=== PATIENT | male | born 1945 | race Caucasian/White ===

== ENCOUNTER 2019-12-03 17:03 | Inpatient (IN) | payer MEDICARE, MEDICAID, SELFPAY ==
[2019-12-03 17:03] VITALS: BP 119/73; PULSE 80; RESP 16; TEMP 36.6; O2SAT 95; BMI 14.9
--- NOTE | 2019-12-03 17:23 | ED_ITS ---
Documented by User: Diaz Douglas DO 12/04/19 12:43 HPI - Weakness General: Chief complaint: Weakness Stated complaint: Weakness Time Seen by Provider: 12/03/19 17:03 History of Present Illness: HPI Narrative: 73-year-old male presents emergency room with weakness for the last 2 months. He said a continuous productive cough of thick purulent sputum for the last 2 months as well he is a former have very heavy smoker he stopped smoking a month ago because he just could not finish to smoke anymore. He denies any hemoptysis he said significant weight loss as well. He states he is not able to really do anything for himself anymore he is unable to even sit at the edge of the bed without falling over. MD Complaint: generalized weakness and lack of energy Onset (ago): month(s) (2) Duration: constant Location: generalized Severity: severe Relieving factors: none Exacerbating factors: none Associated symptoms: Reports nausea; Denies chest pain, chills, dark stools, dysuria, fever(s) or vomiting Review of Systems Const: Reports: fatigue and malaise; Denies: fever, chills, body aches or change in appetite ENMT: Denies: throat pain, ear pain, nasal discharge or nasal congestion Card: Denies: chest pain, edema, shortness of breath on exertion or shortness of breath when lying down Resp: Reports: shortness of breath and productive cough; Denies: non-productive cough GI: Reports: nausea; Denies: abdominal pain, vomiting, vomiting blood, coffee grounds in vomit, diarrhea, constipation, bloating, blood in stool or black tarry stool : Denies: flank pain, painful urination, urinary frequency or urinary urgency Skin/Breast: Denies: rash or itching PFS ED PFSH: Surgical History (Updated 12/03/19 @ 20:18 by Russ Wiggins MD) History of appendectomy History of cholecystectomy Social History (Updated 12/03/19 @ 20:18 by Russ Wiggins MD) Smoking and tobacco status: former smoker Alcohol intake: never Substance/Drug Use: never Physical Exam Const: GENERAL APPEARANCE: cooperative, disheveled, lethargic, ill appearing and frail appearing ORIENTATION/CONSCIOUSNESS: Yes lethargic HENMT: COMMON NORMALS: normocephalic, head/scalp atraumatic, external ears normal, EAC's normal, TM's normal bilaterally, nasal mucous membranes and turbinates normal, moist oral mucous membranes and oropharynx normal HEAD & SCALP: normocephalic and atraumatic NOSE: nasal mucous membranes and turbinates normal EXTERNAL EAR: Yes external ears normal EXTERNAL AUDITORY CANAL: EAC's normal TYMPANIC MEMBRANE: TM's normal bilaterally Eye: COMMON NORMALS: PERRL, EOMs intact bilaterally, conjunctivae normal and no scleral icterus CONJUNCTIVA: Yes conjunctivae normal PUPIL: Yes PERRL Neck/C-Spine: COMMON NORMALS: full ROM, no lymphadenopathy, supple and no JVD Lymph: LYMPHATIC: no lymphadenopathy noted and no lymphedema noted Resp: COMMON NORMALS: normal respiratory effort, no retractions and no use of accessory muscles AUSCULTATION: wheezes throughout and diminished lung sounds diffuse Cardio: COMMON NORMALS: no JVD, regular rate, regular rhythm and no murmurs RATE: regular rate RHYTHM: regular rhythm GI: COMMON NORMALS: soft to palpation and no hepatosplenomegaly AUSCULTATION: Yes normoactive bowel sounds PALPATION: Yes soft, No tender, No guarding and Yes no hepatosplenomegaly Extremity: COMMON NORMALS: normal to inspection, normal capillary refill, no clubbing, cyanosis or edema, no calf tenderness and no pedal edema Neuro: SENSORIUM/ORIENTATION: Yes lethargic Skin: COMMON NORMALS: no rashes or lesions noted GENERAL SKIN EXAM: no rashes or lesions noted Course Vital Signs: Vital signs: Vital Signs Temperature 98.2 F 12/04/19 11:12 Pulse Rate 66 12/04/19 11:12 Respiratory Rate 20 H 12/04/19 11:12 Blood Pressure 99/59 12/04/19 11:12 Pulse Oximetry 93 12/04/19 11:12 MDM - Weakness MDM Narrative: Medical decision making narrative: Initially seen by myself. Initial labs ordered patient is cachectic in appearance very weak and unable to maintain his ADLs suspect he may need long-term care he also probably needs work-up for occult tumor he is a longtime smoker recently quit simply because he is unable to manage to smoke he become weak. Care turned over to Dr. Schaefer at change of shift. Lab Data: Labs: Lab Results 12/03/19 12/03/19 12/03/19 Range/Units 05:38 17:44 17:47 WBC 10.5 H (4.0-10.0) 10^3/ uL RBC 3.88 L (4.1-5.3) 10^6/u L Hgb 14.1 (11.7-16.6) g/dL Hct 41.8 L (42.0-52.0) % MCV 107.7 H (80-94) fL MCH 36.3 H (28.0-34.0) pg MCHC 33.7 (30.0-36.0) g/dL RDW 15.2 H (12.1-15.1) % Plt Count 281 (130-400) 10^3/c mm MPV 9.8 (7.4-10.4) fL Neut % (Auto) 52.4 % Lymph % (Auto) 34.1 % [place] % (Auto) 10.6 % Eos % (Auto) 2.1 % Baso % (Auto) 0.4 % Neut # (Auto) 5.5 (1.8-7.7) 10^3/u L Lymph # (Auto) 3.6 (0.8-4.8) 10^3/u L [place] # (Auto) 1.1 H (0.2-0.9) 10^3/u L Eos # (Auto) 0.2 (0.0-0.8) 10^3/u L Baso # (Auto) 0.0 (0.0-0.1) 10^3/u L Nucleated RBC % (a uto) 0 % Nucleated RBCs # 0.0 /100WBC ESR 71 H (0-10) mm/hr Specimen Type Arterial Sample Site Radial, left ABG pH 7.45 (7.35-7.45) ABG pCO2 41.2 (35-45) mmHg ABG pO2 55.5 L (80.0-100.0) mmH g ABG HCO3 28.6 H (22-26) mmol/L ABG O2 Saturation 91.9 ABG Base Excess 4.2 H (-2.0-2.0) mmol/ L Jarvis Test Pos A-a O2 Gradient 43.3 H (5-10) mmHg Hematocrit 39.9 L (42-52) % Hgb O2 Saturation 82.4 L (95-100) % Carboxyhemoglobin 9.5 (0.4-20.1) %THgb Methemoglobin 0.9 (0.4-1.5) % Total Hemoglobin 13.0 L (14-18) g/dL Sodium 139.0 (131-143) mmol/L Potassium 3.8 (3.5-5.0) mmol/L Glucose 102.0 (70-115) mg/dL Ionized Calcium 1.3 (1.1-1.4) mmol/L O2 Delivery Device Room air FiO2 21.0 % Supervisory Historian ID cak Chloride (98-107) mmol/L Carbon Dioxide (22-29) mmol/L Anion Gap (5-19) BUN (8-23) mg/dL Creatinine (0.7-1.2) mg/dL Estimat Average Gl ucose Hemoglobin A1c (4.0-6.0) % Calculated Osmolal ity (285-295) mOsm/k g Lactate (0.5-2.2) mmol/L Calcium (8.5-10.5) mg/dL Total Bilirubin (0.15-1.2) mg/dL AST (0-40) U/L ALT (0-41) U/L Alkaline Phosphata se (40-130) IU/L Creatine Kinase (39-308) U/L C-Reactive Protein (0.0-4.9) mg/L NT-Pro-B Natriuret Pep (0-125) pg/mL Total Protein (6.6-8.7) g/dL Albumin (3.5-5.2) g/dL Globulin (1.3-4.6) g/dL Triglycerides (0-150) mg/dL Cholesterol (0-200) mg/dL LDL Cholesterol, C alc (50-129) mg/dL HDL Cholesterol (60-100) mg/dL LDL/HDL Ratio (0.00-3.22) RATI O Cholesterol/HDL Ra jeb (1.0-5.00) mg/dL Lipase (13-60) U/L PSA Screen (0-4) ng/mL TSH (0.27-4.20) uIU/ mL Urine Color (Yellow) Urine Appearance (CLEAR) Urine pH (5-7) Ur Specific Gravit y (1.005-1.030) Urine Protein (Negative) Urine Glucose (UA) (Normal) Urine Ketones (Negative) Urine Blood (Negative) Urine Nitrate (Negative) Urine Bilirubin (NEGATIVE) Urine Urobilinogen (Negative) mg/dL Ur Leukocyte [place] ase (Negative) Serum Ketones (Negative) 12/03/19 12/03/19 12/03/19 Range/Units 17:47 17:47 17:47 WBC (4.0-10.0) 10^3/ uL RBC (4.1-5.3) 10^6/u L Hgb (11.7-16.6) g/dL Hct (42.0-52.0) % MCV (80-94) fL MCH (28.0-34.0) pg MCHC (30.0-36.0) g/dL RDW (12.1-15.1) % Plt Count (130-400) 10^3/c mm MPV (7.4-10.4) fL Neut % (Auto) % Lymph % (Auto) % [place] % (Auto) % Eos % (Auto) % Baso % (Auto) % Neut # (Auto) (1.8-7.7) 10^3/u L Lymph # (Auto) (0.8-4.8) 10^3/u L [place] # (Auto) (0.2-0.9) 10^3/u L Eos # (Auto) (0.0-0.8) 10^3/u L Baso # (Auto) (0.0-0.1) 10^3/u L Nucleated RBC % (a uto) % Nucleated RBCs # /100WBC ESR (0-10) mm/hr Specimen Type Sample Site ABG pH (7.35-7.45) ABG pCO2 (35-45) mmHg ABG pO2 (80.0-100.0) mmH g ABG HCO3 (22-26) mmol/L ABG O2 Saturation ABG Base Excess (-2.0-2.0) mmol/ L Jarvis Test A-a O2 Gradient (5-10) mmHg Hematocrit (42-52) % Hgb O2 Saturation (95-100) % Carboxyhemoglobin (0.4-20.1) %THgb Methemoglobin (0.4-1.5) % Total Hemoglobin (14-18) g/dL Sodium 137 (131-143) mmol/L Potassium 4.4 (3.5-5.0) mmol/L Glucose 107 (70-115) mg/dL Ionized Calcium (1.1-1.4) mmol/L O2 Delivery Device FiO2 % Supervisory Historian ID Chloride 97 L (98-107) mmol/L Carbon Dioxide 28 (22-29) mmol/L Anion Gap 16.4 (5-19) BUN 7 L (8-23) mg/dL Creatinine 1.0 (0.7-1.2) mg/dL Estimat Average Gl ucose Hemoglobin A1c (4.0-6.0) % Calculated Osmolal ity 280 L (285-295) mOsm/k g Lactate 1.6 (0.5-2.2) mmol/L Calcium 10.4 (8.5-10.5) mg/dL Total Bilirubin 0.4 (0.15-1.2) mg/dL AST 20 (0-40) U/L ALT 12 (0-41) U/L Alkaline Phosphata se 169 H (40-130) IU/L Creatine Kinase 21 L (39-308) U/L C-Reactive Protein (0.0-4.9) mg/L NT-Pro-B Natriuret Pep (0-125) pg/mL Total Protein 7.1 (6.6-8.7) g/dL Albumin 3.7 (3.5-5.2) g/dL Globulin 3.4 (1.3-4.6) g/dL Triglycerides (0-150) mg/dL Cholesterol (0-200) mg/dL LDL Cholesterol, C alc (50-129) mg/dL HDL Cholesterol (60-100) mg/dL LDL/HDL Ratio (0.00-3.22) RATI O Cholesterol/HDL Ra jeb (1.0-5.00) mg/dL Lipase 23 (13-60) U/L PSA Screen (0-4) ng/mL TSH (0.27-4.20) uIU/ mL Urine Color (Yellow) Urine Appearance (CLEAR) Urine pH (5-7) Ur Specific Gravit y (1.005-1.030) Urine Protein (Negative) Urine Glucose (UA) (Normal) Urine Ketones (Negative) Urine Blood (Negative) Urine Nitrate (Negative) Urine Bilirubin (NEGATIVE) Urine Urobilinogen (Negative) mg/dL Ur Leukocyte [place] ase (Negative) Serum Ketones Negative (Negative) 12/03/19 12/03/19 12/03/19 Range/Units 17:47 17:47 17:47 WBC (4.0-10.0) 10^3/ uL RBC (4.1-5.3) 10^6/u L Hgb (11.7-16.6) g/dL Hct (42.0-52.0) % MCV (80-94) fL MCH (28.0-34.0) pg MCHC (30.0-36.0) g/dL RDW (12.1-15.1) % Plt Count (130-400) 10^3/c mm MPV (7.4-10.4) fL Neut % (Auto) % Lymph % (Auto) % [place] % (Auto) % Eos % (Auto) % Baso % (Auto) % Neut # (Auto) (1.8-7.7) 10^3/u L Lymph # (Auto) (0.8-4.8) 10^3/u L [place] # (Auto) (0.2-0.9) 10^3/u L Eos # (Auto) (0.0-0.8) 10^3/u L Baso # (Auto) (0.0-0.1) 10^3/u L Nucleated RBC % (a uto) % Nucleated RBCs # /100WBC ESR (0-10) mm/hr Specimen Type Sample Site ABG pH (7.35-7.45) ABG pCO2 (35-45) mmHg ABG pO2 (80.0-100.0) mmH g ABG HCO3 (22-26) mmol/L ABG O2 Saturation ABG Base Excess (-2.0-2.0) mmol/ L Jarvis Test A-a O2 Gradient (5-10) mmHg Hematocrit (42-52) % Hgb O2 Saturation (95-100) % Carboxyhemoglobin (0.4-20.1) %THgb Methemoglobin (0.4-1.5) % Total Hemoglobin (14-18) g/dL Sodium (131-143) mmol/L Potassium (3.5-5.0) mmol/L Glucose (70-115) mg/dL Ionized Calcium (1.1-1.4) mmol/L O2 Delivery Device FiO2 % Supervisory Historian ID Chloride (98-107) mmol/L Carbon Dioxide (22-29) mmol/L Anion Gap (5-19) BUN (8-23) mg/dL Creatinine (0.7-1.2) mg/dL Estimat Average Gl ucose 108 Hemoglobin A1c 5.4 (4.0-6.0) % Calculated Osmolal ity (285-295) mOsm/k g Lactate (0.5-2.2) mmol/L Calcium (8.5-10.5) mg/dL Total Bilirubin (0.15-1.2) mg/dL AST (0-40) U/L ALT (0-41) U/L Alkaline Phosphata se (40-130) IU/L Creatine Kinase (39-308) U/L C-Reactive Protein 7.9 H (0.0-4.9) mg/L NT-Pro-B Natriuret Pep 120 (0-125) pg/mL Total Protein (6.6-8.7) g/dL Albumin (3.5-5.2) g/dL Globulin (1.3-4.6) g/dL Triglycerides 103 (0-150) mg/dL Cholesterol 125 (0-200) mg/dL LDL Cholesterol, C alc 63 (50-129) mg/dL HDL Cholesterol 41 L (60-100) mg/dL LDL/HDL Ratio 1.54 (0.00-3.22) RATI O Cholesterol/HDL Ra jeb 3.05 (1.0-5.00) mg/dL Lipase (13-60) U/L PSA Screen < 0.02 (0-4) ng/mL TSH 1.23 (0.27-4.20) uIU/ mL Urine Color (Yellow) Urine Appearance (CLEAR) Urine pH (5-7) Ur Specific Gravit y (1.005-1.030) Urine Protein (Negative) Urine Glucose (UA) (Normal) Urine Ketones (Negative) Urine Blood (Negative) Urine Nitrate (Negative) Urine Bilirubin (NEGATIVE) Urine Urobilinogen (Negative) mg/dL Ur Leukocyte [place] ase (Negative) Serum Ketones (Negative) 12/03/19 Range/Units 18:09 WBC (4.0-10.0) 10^3/ uL RBC (4.1-5.3) 10^6/u L Hgb (11.7-16.6) g/dL Hct (42.0-52.0) % MCV (80-94) fL MCH (28.0-34.0) pg MCHC (30.0-36.0) g/dL RDW (12.1-15.1) % Plt Count (130-400) 10^3/c mm MPV (7.4-10.4) fL Neut % (Auto) % Lymph % (Auto) % [place] % (Auto) % Eos % (Auto) % Baso % (Auto) % Neut # (Auto) (1.8-7.7) 10^3/u L Lymph # (Auto) (0.8-4.8) 10^3/u L [place] # (Auto) (0.2-0.9) 10^3/u L Eos # (Auto) (0.0-0.8) 10^3/u L Baso # (Auto) (0.0-0.1) 10^3/u L Nucleated RBC % (a uto) % Nucleated RBCs # /100WBC ESR (0-10) mm/hr Specimen Type Sample Site ABG pH (7.35-7.45) ABG pCO2 (35-45) mmHg ABG pO2 (80.0-100.0) mmH g ABG HCO3 (22-26) mmol/L ABG O2 Saturation ABG Base Excess (-2.0-2.0) mmol/ L Jarvis Test A-a O2 Gradient (5-10) mmHg Hematocrit (42-52) % Hgb O2 Saturation (95-100) % Carboxyhemoglobin (0.4-20.1) %THgb Methemoglobin (0.4-1.5) % Total Hemoglobin (14-18) g/dL Sodium (131-143) mmol/L Potassium (3.5-5.0) mmol/L Glucose (70-115) mg/dL Ionized Calcium (1.1-1.4) mmol/L O2 Delivery Device FiO2 % Supervisory Historian ID Chloride (98-107) mmol/L Carbon Dioxide (22-29) mmol/L Anion Gap (5-19) BUN (8-23) mg/dL Creatinine (0.7-1.2) mg/dL Estimat Average Gl ucose Hemoglobin A1c (4.0-6.0) % Calculated Osmolal ity (285-295) mOsm/k g Lactate (0.5-2.2) mmol/L Calcium (8.5-10.5) mg/dL Total Bilirubin (0.15-1.2) mg/dL AST (0-40) U/L ALT (0-41) U/L Alkaline Phosphata se (40-130) IU/L Creatine Kinase (39-308) U/L C-Reactive Protein (0.0-4.9) mg/L NT-Pro-B Natriuret Pep (0-125) pg/mL Total Protein (6.6-8.7) g/dL Albumin (3.5-5.2) g/dL Globulin (1.3-4.6) g/dL Triglycerides (0-150) mg/dL Cholesterol (0-200) mg/dL LDL Cholesterol, C alc (50-129) mg/dL HDL Cholesterol (60-100) mg/dL LDL/HDL Ratio (0.00-3.22) RATI O Cholesterol/HDL Ra jeb (1.0-5.00) mg/dL Lipase (13-60) U/L PSA Screen (0-4) ng/mL TSH (0.27-4.20) uIU/ mL Urine Color Yellow (Yellow) Urine Appearance Clear (CLEAR) Urine pH 6.5 (5-7) Ur Specific Gravit y 1.010 (1.005-1.030) Urine Protein Neg (Negative) Urine Glucose (UA) Norm (Normal) Urine Ketones Negative (Negative) Urine Blood Neg (Negative) Urine Nitrate Negative (Negative) Urine Bilirubin Neg (NEGATIVE) Urine Urobilinogen Norm (Negative) mg/dL Ur Leukocyte [place] ase Negative (Negative) Serum Ketones (Negative) Discharge Plan Discharge Patient Disposition: Admitted As Inpatient Admit Provider: Russ Wiggins Clinical Impression: Generalized weakness Condition: Stable Referrals: Manuel Ambrose [Family Provider] - Discharge Date/Time: 12/03/19 21:25 Coding Level of Care Code ED Nurse Aide Evaluator for Chg Fwd Exam Comprehensive Documented by User: Cricket Schaefer MD 12/03/19 19:48 HPI - Weakness General: Chief complaint: Weakness Stated complaint: Weakness Time Seen by Provider: 12/03/19 17:03 PFSH ED PFSH: Surgical History (Updated 12/03/19 @ 20:18 by Russ Wiggins MD) History of appendectomy History of cholecystectomy Social History (Updated 12/03/19 @ 20:18 by Russ Wiggins MD) Smoking and tobacco status: former smoker Alcohol intake: never Substance/Drug Use: never Course Vital Signs: Vital signs: Vital Signs Temperature 98.2 F 12/04/19 11:12 Pulse Rate 66 12/04/19 11:12 Respiratory Rate 20 H 12/04/19 11:12 Blood Pressure 99/59 12/04/19 11:12 Pulse Oximetry 93 12/04/19 11:12 MDM - Weakness MDM Narrative: Medical decision making narrative: pt presents here with generalized weakness. pt is cachectic and is unable to walk. pt is unable to care for herself. I spoke to dr. wiggins and will admit at this time. Lab Data: Labs: Lab Results 12/03/19 12/03/19 12/03/19 Range/Units 05:38 17:44 17:47 WBC 10.5 H (4.0-10.0) 10^3/ uL RBC 3.88 L (4.1-5.3) 10^6/u L Hgb 14.1 (11.7-16.6) g/dL Hct 41.8 L (42.0-52.0) % MCV 107.7 H (80-94) fL MCH 36.3 H (28.0-34.0) pg MCHC 33.7 (30.0-36.0) g/dL RDW 15.2 H (12.1-15.1) % Plt Count 281 (130-400) 10^3/c mm MPV 9.8 (7.4-10.4) fL Neut % (Auto) 52.4 % Lymph % (Auto) 34.1 % [place] % (Auto) 10.6 % Eos % (Auto) 2.1 % Baso % (Auto) 0.4 % Neut # (Auto) 5.5 (1.8-7.7) 10^3/u L Lymph # (Auto) 3.6 (0.8-4.8) 10^3/u L [place] # (Auto) 1.1 H (0.2-0.9) 10^3/u L Eos # (Auto) 0.2 (0.0-0.8) 10^3/u L Baso # (Auto) 0.0 (0.0-0.1) 10^3/u L Nucleated RBC % (a uto) 0 % Nucleated RBCs # 0.0 /100WBC ESR 71 H (0-10) mm/hr Specimen Type Arterial Sample Site Radial, left ABG pH 7.45 (7.35-7.45) ABG pCO2 41.2 (35-45) mmHg ABG pO2 55.5 L (80.0-100.0) mmH g ABG HCO3 28.6 H (22-26) mmol/L ABG O2 Saturation 91.9 ABG Base Excess 4.2 H (-2.0-2.0) mmol/ L Jarvis Test Pos A-a O2 Gradient 43.3 H (5-10) mmHg Hematocrit 39.9 L (42-52) % Hgb O2 Saturation 82.4 L (95-100) % Carboxyhemoglobin 9.5 (0.4-20.1) %THgb Methemoglobin 0.9 (0.4-1.5) % Total Hemoglobin 13.0 L (14-18) g/dL Sodium 139.0 (131-143) mmol/L Potassium 3.8 (3.5-5.0) mmol/L Glucose 102.0 (70-115) mg/dL Ionized Calcium 1.3 (1.1-1.4) mmol/L O2 Delivery Device Room air FiO2 21.0 % Supervisory Historian ID cak Chloride (98-107) mmol/L Carbon Dioxide (22-29) mmol/L Anion Gap (5-19) BUN (8-23) mg/dL Creatinine (0.7-1.2) mg/dL Estimat Average Gl ucose Hemoglobin A1c (4.0-6.0) % Calculated Osmolal ity (285-295) mOsm/k g Lactate (0.5-2.2) mmol/L Calcium (8.5-10.5) mg/dL Total Bilirubin (0.15-1.2) mg/dL AST (0-40) U/L ALT (0-41) U/L Alkaline Phosphata se (40-130) IU/L Creatine Kinase (39-308) U/L C-Reactive Protein (0.0-4.9) mg/L NT-Pro-B Natriuret Pep (0-125) pg/mL Total Protein (6.6-8.7) g/dL Albumin (3.5-5.2) g/dL Globulin (1.3-4.6) g/dL Triglycerides (0-150) mg/dL Cholesterol (0-200) mg/dL LDL Cholesterol, C alc (50-129) mg/dL HDL Cholesterol (60-100) mg/dL LDL/HDL Ratio (0.00-3.22) RATI O Cholesterol/HDL Ra jeb (1.0-5.00) mg/dL Lipase (13-60) U/L PSA Screen (0-4) ng/mL TSH (0.27-4.20) uIU/ mL Urine Color (Yellow) Urine Appearance (CLEAR) Urine pH (5-7) Ur Specific Gravit y (1.005-1.030) Urine Protein (Negative) Urine Glucose (UA) (Normal) Urine Ketones (Negative) Urine Blood (Negative) Urine Nitrate (Negative) Urine Bilirubin (NEGATIVE) Urine Urobilinogen (Negative) mg/dL Ur Leukocyte [place] ase (Negative) Serum Ketones (Negative) 12/03/19 12/03/19 12/03/19 Range/Units 17:47 17:47 17:47 WBC (4.0-10.0) 10^3/ uL RBC (4.1-5.3) 10^6/u L Hgb (11.7-16.6) g/dL Hct (42.0-52.0) % MCV (80-94) fL MCH (28.0-34.0) pg MCHC (30.0-36.0) g/dL RDW (12.1-15.1) % Plt Count (130-400) 10^3/c mm MPV (7.4-10.4) fL Neut % (Auto) % Lymph % (Auto) % [place] % (Auto) % Eos % (Auto) % Baso % (Auto) % Neut # (Auto) (1.8-7.7) 10^3/u L Lymph # (Auto) (0.8-4.8) 10^3/u L [place] # (Auto) (0.2-0.9) 10^3/u L Eos # (Auto) (0.0-0.8) 10^3/u L Baso # (Auto) (0.0-0.1) 10^3/u L Nucleated RBC % (a uto) % Nucleated RBCs # /100WBC ESR (0-10) mm/hr Specimen Type Sample Site ABG pH (7.35-7.45) ABG pCO2 (35-45) mmHg ABG pO2 (80.0-100.0) mmH g ABG HCO3 (22-26) mmol/L ABG O2 Saturation ABG Base Excess (-2.0-2.0) mmol/ L Jarvis Test A-a O2 Gradient (5-10) mmHg Hematocrit (42-52) % Hgb O2 Saturation (95-100) % Carboxyhemoglobin (0.4-20.1) %THgb Methemoglobin (0.4-1.5) % Total Hemoglobin (14-18) g/dL Sodium 137 (131-143) mmol/L Potassium 4.4 (3.5-5.0) mmol/L Glucose 107 (70-115) mg/dL Ionized Calcium (1.1-1.4) mmol/L O2 Delivery Device FiO2 % Supervisory Historian ID Chloride 97 L (98-107) mmol/L Carbon Dioxide 28 (22-29) mmol/L Anion Gap 16.4 (5-19) BUN 7 L (8-23) mg/dL Creatinine 1.0 (0.7-1.2) mg/dL Estimat Average Gl ucose Hemoglobin A1c (4.0-6.0) % Calculated Osmolal ity 280 L (285-295) mOsm/k g Lactate 1.6 (0.5-2.2) mmol/L Calcium 10.4 (8.5-10.5) mg/dL Total Bilirubin 0.4 (0.15-1.2) mg/dL AST 20 (0-40) U/L ALT 12 (0-41) U/L Alkaline Phosphata se 169 H (40-130) IU/L Creatine Kinase 21 L (39-308) U/L C-Reactive Protein (0.0-4.9) mg/L NT-Pro-B Natriuret Pep (0-125) pg/mL Total Protein 7.1 (6.6-8.7) g/dL Albumin 3.7 (3.5-5.2) g/dL Globulin 3.4 (1.3-4.6) g/dL Triglycerides (0-150) mg/dL Cholesterol (0-200) mg/dL LDL Cholesterol, C alc (50-129) mg/dL HDL Cholesterol (60-100) mg/dL LDL/HDL Ratio (0.00-3.22) RATI O Cholesterol/HDL Ra jeb (1.0-5.00) mg/dL Lipase 23 (13-60) U/L PSA Screen (0-4) ng/mL TSH (0.27-4.20) uIU/ mL Urine Color (Yellow) Urine Appearance (CLEAR) Urine pH (5-7) Ur Specific Gravit y (1.005-1.030) Urine Protein (Negative) Urine Glucose (UA) (Normal) Urine Ketones (Negative) Urine Blood (Negative) Urine Nitrate (Negative) Urine Bilirubin (NEGATIVE) Urine Urobilinogen (Negative) mg/dL Ur Leukocyte [place] ase (Negative) Serum Ketones Negative (Negative) 12/03/19 12/03/19 12/03/19 Range/Units 17:47 17:47 17:47 WBC (4.0-10.0) 10^3/ uL RBC (4.1-5.3) 10^6/u L Hgb (11.7-16.6) g/dL Hct (42.0-52.0) % MCV (80-94) fL MCH (28.0-34.0) pg MCHC (30.0-36.0) g/dL RDW (12.1-15.1) % Plt Count (130-400) 10^3/c mm MPV (7.4-10.4) fL Neut % (Auto) % Lymph % (Auto) % [place] % (Auto) % Eos % (Auto) % Baso % (Auto) % Neut # (Auto) (1.8-7.7) 10^3/u L Lymph # (Auto) (0.8-4.8) 10^3/u L [place] # (Auto) (0.2-0.9) 10^3/u L Eos # (Auto) (0.0-0.8) 10^3/u L Baso # (Auto) (0.0-0.1) 10^3/u L Nucleated RBC % (a uto) % Nucleated RBCs # /100WBC ESR (0-10) mm/hr Specimen Type Sample Site ABG pH (7.35-7.45) ABG pCO2 (35-45) mmHg ABG pO2 (80.0-100.0) mmH g ABG HCO3 (22-26) mmol/L ABG O2 Saturation ABG Base Excess (-2.0-2.0) mmol/ L Jarvis Test A-a O2 Gradient (5-10) mmHg Hematocrit (42-52) % Hgb O2 Saturation (95-100) % Carboxyhemoglobin (0.4-20.1) %THgb Methemoglobin (0.4-1.5) % Total Hemoglobin (14-18) g/dL Sodium (131-143) mmol/L Potassium (3.5-5.0) mmol/L Glucose (70-115) mg/dL Ionized Calcium (1.1-1.4) mmol/L O2 Delivery Device FiO2 % Supervisory Historian ID Chloride (98-107) mmol/L Carbon Dioxide (22-29) mmol/L Anion Gap (5-19) BUN (8-23) mg/dL Creatinine (0.7-1.2) mg/dL Estimat Average Gl ucose 108 Hemoglobin A1c 5.4 (4.0-6.0) % Calculated Osmolal ity (285-295) mOsm/k g Lactate (0.5-2.2) mmol/L Calcium (8.5-10.5) mg/dL Total Bilirubin (0.15-1.2) mg/dL AST (0-40) U/L ALT (0-41) U/L Alkaline Phosphata se (40-130) IU/L Creatine Kinase (39-308) U/L C-Reactive Protein 7.9 H (0.0-4.9) mg/L NT-Pro-B Natriuret Pep 120 (0-125) pg/mL Total Protein (6.6-8.7) g/dL Albumin (3.5-5.2) g/dL Globulin (1.3-4.6) g/dL Triglycerides 103 (0-150) mg/dL Cholesterol 125 (0-200) mg/dL LDL Cholesterol, C alc 63 (50-129) mg/dL HDL Cholesterol 41 L (60-100) mg/dL LDL/HDL Ratio 1.54 (0.00-3.22) RATI O Cholesterol/HDL Ra jeb 3.05 (1.0-5.00) mg/dL Lipase (13-60) U/L PSA Screen < 0.02 (0-4) ng/mL TSH 1.23 (0.27-4.20) uIU/ mL Urine Color (Yellow) Urine Appearance (CLEAR) Urine pH (5-7) Ur Specific Gravit y (1.005-1.030) Urine Protein (Negative) Urine Glucose (UA) (Normal) Urine Ketones (Negative) Urine Blood (Negative) Urine Nitrate (Negative) Urine Bilirubin (NEGATIVE) Urine Urobilinogen (Negative) mg/dL Ur Leukocyte [place] ase (Negative) Serum Ketones (Negative) 12/03/19 Range/Units 18:09 WBC (4.0-10.0) 10^3/ uL RBC (4.1-5.3) 10^6/u L Hgb (11.7-16.6) g/dL Hct (42.0-52.0) % MCV (80-94) fL MCH (28.0-34.0) pg MCHC (30.0-36.0) g/dL RDW (12.1-15.1) % Plt Count (130-400) 10^3/c mm MPV (7.4-10.4) fL Neut % (Auto) % Lymph % (Auto) % [place] % (Auto) % Eos % (Auto) % Baso % (Auto) % Neut # (Auto) (1.8-7.7) 10^3/u L Lymph # (Auto) (0.8-4.8) 10^3/u L [place] # (Auto) (0.2-0.9) 10^3/u L Eos # (Auto) (0.0-0.8) 10^3/u L Baso # (Auto) (0.0-0.1) 10^3/u L Nucleated RBC % (a uto) % Nucleated RBCs # /100WBC ESR (0-10) mm/hr Specimen Type Sample Site ABG pH (7.35-7.45) ABG pCO2 (35-45) mmHg ABG pO2 (80.0-100.0) mmH g ABG HCO3 (22-26) mmol/L ABG O2 Saturation ABG Base Excess (-2.0-2.0) mmol/ L Jarvis Test A-a O2 Gradient (5-10) mmHg Hematocrit (42-52) % Hgb O2 Saturation (95-100) % Carboxyhemoglobin (0.4-20.1) %THgb Methemoglobin (0.4-1.5) % Total Hemoglobin (14-18) g/dL Sodium (131-143) mmol/L Potassium (3.5-5.0) mmol/L Glucose (70-115) mg/dL Ionized Calcium (1.1-1.4) mmol/L O2 Delivery Device FiO2 % Supervisory Historian ID Chloride (98-107) mmol/L Carbon Dioxide (22-29) mmol/L Anion Gap (5-19) BUN (8-23) mg/dL Creatinine (0.7-1.2) mg/dL Estimat Average Gl ucose Hemoglobin A1c (4.0-6.0) % Calculated Osmolal ity (285-295) mOsm/k g Lactate (0.5-2.2) mmol/L Calcium (8.5-10.5) mg/dL Total Bilirubin (0.15-1.2) mg/dL AST (0-40) U/L ALT (0-41) U/L Alkaline Phosphata se (40-130) IU/L Creatine Kinase (39-308) U/L C-Reactive Protein (0.0-4.9) mg/L NT-Pro-B Natriuret Pep (0-125) pg/mL Total Protein (6.6-8.7) g/dL Albumin (3.5-5.2) g/dL Globulin (1.3-4.6) g/dL Triglycerides (0-150) mg/dL Cholesterol (0-200) mg/dL LDL Cholesterol, C alc (50-129) mg/dL HDL Cholesterol (60-100) mg/dL LDL/HDL Ratio (0.00-3.22) RATI O Cholesterol/HDL Ra jeb (1.0-5.00) mg/dL Lipase (13-60) U/L PSA Screen (0-4) ng/mL TSH (0.27-4.20) uIU/ mL Urine Color Yellow (Yellow) Urine Appearance Clear (CLEAR) Urine pH 6.5 (5-7) Ur Specific Gravit y 1.010 (1.005-1.030) Urine Protein Neg (Negative) Urine Glucose (UA) Norm (Normal) Urine Ketones Negative (Negative) Urine Blood Neg (Negative) Urine Nitrate Negative (Negative) Urine Bilirubin Neg (NEGATIVE) Urine Urobilinogen Norm (Negative) mg/dL Ur Leukocyte [place] ase Negative (Negative) Serum Ketones (Negative) Imaging Data^: CT Chest: Radiologist's impression: [place] [address] CT Scan Report Signed Patient: Carloz Baeza Sr Unit #: [id number] : 1945 Age/Sex: 73 / M ADM Date: 12/03/19 Loc: ER Room/Bed: Attending Dr: Ordering Provider/Ordering MD: Diaz Douglas DO Date of Service: 12/03/19 Procedure(s): CT chest w con* [id number] Accession Number(s): [id number] Report Number: [id number] PROCEDURE INFORMATION: Exam: CT Chest With Contrast Exam date and time: 12/03/2019 6:13 PM Age: 73 years old Clinical indication: Cough; Prior surgery; Surgery date: 6+ months; Additional info: Dyspnea/prolonged prod cough TECHNIQUE: Imaging protocol: Computed tomography of the chest with intravenous contrast. Total DLP: 334.1 mGy-cm Radiation optimization: All CT scans at this facility use at least one of these dose optimization techniques: automated exposure control; mA and/or kV adjustment per patient size (includes targeted exams where dose is matched to clinical indication); or iterative reconstruction. Contrast material: OMNIPAQUE 300; Contrast volume: 95 ml; Contrast route: IV; COMPARISON: CT chest wo con [id number] 10/23/2013 4:11 PM FINDINGS: Lungs: COPD/chronic bronchitis/emphysema. Evidence of antecedent granulomatous disease. Rare small focus of nonobstructive mucous within the trachea and bilateral mainstem bronchi. No evidence for mucous plugging. No visible bronchiectasis. Pleural space: Unremarkable. No pneumothorax. No pleural effusion. Heart: Moderate coronary artery disease. No cardiomegaly. No pericardial effusion. Pacemaker. Aorta: The thoracic aorta is nonaneurysmal. Moderate arterial sclerotic disease. Lymph nodes: No visible active mediastinal or hilar lymphadenopathy. Liver: Rare calcification of antecedent granulomatous disease within the liver parenchyma. Gallbladder and bile ducts: Gallbladder, spleen, and bile ducts: Status post splenectomy and cholecystectomy. Adrenals: Stable small left adrenal adenoma. Bones/joints: Old compression deformity T12. Soft tissues: Unremarkable. CT/CT chest w con* [id number] IMPRESSION: 1. No visible evidence of active or acute cardiopulmonary process. 2. COPD/chronic bronchitis/emphysema. 3. Rare small focus of nonobstructive mucous within the trachea and bilateral mainstem bronchi. 4. Other nonurgent, nonemergent, age, and chronic findings as detailed in text above. EKG Data^: EKG 1: Attestation: I personally reviewed and interpreted this EKG as follows: EKG interpretation date: 12/03/19 EKG interpretation time: 18:14 Interpretation: nsr hr [address] or t wave abnormalities rbbb qrs 128 qtc 439 Discharge Plan Discharge Patient Disposition: Admitted As Inpatient Admit Provider: Russ Wiggins Clinical Impression: Generalized weakness Condition: Stable Referrals: Manuel Ambrose [Family Provider] - Discharge Date/Time: 12/03/19 21:25 Coding Level of Care Code ED Nurse Aide Evaluator for Chg Fwd Exam Comprehensive
--- NOTE | 2019-12-03 17:25 | ECG_ITS ---
Measurements Intervals [place] Rate: 71 P: 76 WA: 176 QRS: 39 QRSD: 128 T: 69 QT: 416 QTc: 455 SINUS RHYTHM INDETERMINATE AXIS RIGHT BUNDLE BRANCH BLOCK [120+ ms QRS DURATION, UPRIGHT V1, 40+ ms S IN I/ I/aVL/V4/V5/V6] No previous ECG available for comparison Electronically Signed On 12-04-2019 10:54:22 CDT by Lauren Slaughter M.D. [email or web address]
--- NOTE | 2019-12-03 17:25 | XR_ITS ---
WS: [id number] PORTABLE CHEST HISTORY: dyspnea/cough COMPARISON: 02/19/2018 Dual lead LEFT subclavian pacer. Revision has also been performed. Hyperinflated lungs. No pneumonia. No pleural effusion or pneumothorax. Cardiac size: Normal. Mediastinum/Aorta: Mild atherosclerosis aorta. No osseous abnormality seen. XR/XR chest 1V portable [id number] IMPRESSION: 1. No pneumonia. 2. Partially calcified aorta.
[2019-12-03 17:27] VITALS: BP 119/73; PULSE 70; RESP 18; O2SAT 93
--- NOTE | 2019-12-03 17:49 | PC.NURSE ---
XR performed at bedside
--- NOTE | 2019-12-03 17:50 | PC.NURSE ---
RT at bedside to draw ABG
[2019-12-03 17:55] LABS: ABG PCO2 41.2 mmHg (35-45); ABG PH Result 7.45 (7.35-7.45); Alveolar-Arterial Oxygen Gradi 43.3 mmHg (5-10); Arterial Blood Gas Hematocrit 39.9 % (42-52); Base Excess ABG 4.2 mmol/L (-2.0-2.0); Blood Gas Allen Test Pos; Blood Gas Sample Site Radial, left; Blood Gas Sample Type Arterial; Carboxyhemoglobin 9.5 %THgb (0.4-20.1); HCO3 ABG 28.6 mmol/L (22-26); HGB O2 Sat 82.4 % (95-100); Ionized Calcium Level - ABG 1.3 mmol/L (1.1-1.4); Methemoglobin 0.9 % (0.4-1.5); Oxygen Device ROOM AIR; Oxygen Saturation ABG 91.9; PO2 ABG 55.5 mmHg (80.0-100.0); Potassium Level - ABG 3.8 mmol/L (3.5-5.0)
[2019-12-03 17:55] LABS: Basophils % 0.4 %; Eosinophils # 0.2 10^3/uL (0.0-0.8); Eosinophils % 2.1 %; Hematocrit 41.8 % (42.0-52.0); Hemoglobin 14.1 g/dL (11.7-16.6); Lymphocytes # 3.6 10^3/uL (0.8-4.8); Lymphocytes % 34.1 %; Mean Corpuscular HGB Conc 33.7 g/dL (30.0-36.0); Mean Corpuscular Hemoglobin 36.3 pg (28.0-34.0); Mean Corpuscular Volume 107.7 fL (80-94); Mean Platelet Volume 9.8 fL (7.4-10.4); Monocytes # 1.1 10^3/uL (0.2-0.9); Monocytes % 10.6 %; Neutrophils # 5.5 10^3/uL (1.8-7.7); Neutrophils % 52.4 %; Nucleated Red Blood Cells % 0 %; Platelet Count 281 10^3/cmm (130-400); Red Blood Count 3.88 10^6/uL (4.1-5.3); Red Cell Distribution Width 15.2 % (12.1-15.1); White Blood Count 10.5 10^3/uL (4.0-10.0)
[2019-12-03 18:07] LABS: Ketone (Acetest) Serum Negative (Negative)
[2019-12-03 18:09] LABS: Lactate (Lactic Acid level) 1.6 mmol/L (0.5-2.2)
[2019-12-03 18:10] LABS: Alanine Aminotransferase 12 U/L (0-41); Albumin Level 3.7 g/dL (3.5-5.2); Alkaline Phosphatase 169 IU/L (40-130); Anion Gap 16.4 (5-19); Aspartate Amino Transferase 20 U/L (0-40); Blood Urea Nitrogen 7 mg/dL (8-23); Calcium 10.4 mg/dL (8.5-10.5); Carbon Dioxide 28 mmol/L (22-29); Chloride 97 mmol/L (98-107); Creatine Phosphokinase 21 U/L (39-308); Globulin 3.4 g/dL (1.3-4.6); Glucose 107 mg/dL (65-115); Lipase 23 U/L (13-60); Osmolality Calculated 280 mOsm/kg (285-295); Potassium 4.4 mmol/L (3.5-5.1); Sodium 137 mmol/L (136-145); Total Bilirubin 0.4 mg/dL (0.15-1.2); Total Protein 7.1 g/dL (6.6-8.7)
[2019-12-03 18:11] VITALS: BP 117/73; PULSE 72; RESP 10; O2SAT 95
--- NOTE | 2019-12-03 18:12 | CTR_ITS ---
PROCEDURE INFORMATION: Exam: CT Chest With Contrast Exam date and time: 12/03/2019 6:13 PM Age: 73 years old Clinical indication: Cough; Prior surgery; Surgery date: 6+ months; Additional info: Dyspnea/prolonged prod cough TECHNIQUE: Imaging protocol: Computed tomography of the chest with intravenous contrast. Total DLP: 334.1 mGy-cm Radiation optimization: All CT scans at this facility use at least one of these dose optimization techniques: automated exposure control; mA and/or kV adjustment per patient size (includes targeted exams where dose is matched to clinical indication); or iterative reconstruction. Contrast material: OMNIPAQUE 300; Contrast volume: 95 ml; Contrast route: IV; COMPARISON: CT chest wo con [id number] 10/23/2013 4:11 PM FINDINGS: Lungs: COPD/chronic bronchitis/emphysema. Evidence of antecedent granulomatous disease. Rare small focus of nonobstructive mucous within the trachea and bilateral mainstem bronchi. No evidence for mucous plugging. No visible bronchiectasis. Pleural space: Unremarkable. No pneumothorax. No pleural effusion. Heart: Moderate coronary artery disease. No cardiomegaly. No pericardial effusion. Pacemaker. Aorta: The thoracic aorta is nonaneurysmal. Moderate arterial sclerotic disease. Lymph nodes: No visible active mediastinal or hilar lymphadenopathy. Liver: Rare calcification of antecedent granulomatous disease within the liver parenchyma. Gallbladder and bile ducts: Gallbladder, spleen, and bile ducts: Status post splenectomy and cholecystectomy. Adrenals: Stable small left adrenal adenoma. Bones/joints: Old compression deformity T12. Soft tissues: Unremarkable. CT/CT chest w con* [id number] IMPRESSION: 1. No visible evidence of active or acute cardiopulmonary process. 2. COPD/chronic bronchitis/emphysema. 3. Rare small focus of nonobstructive mucous within the trachea and bilateral mainstem bronchi. 4. Other nonurgent, nonemergent, age, and chronic findings as detailed in text above. Radiation Dose CTDIVOL = (mGy): DLP = 334.1 (mGy-cm)
[2019-12-03 18:17] LABS: Add Urine Microscopic? NO
[2019-12-03 18:21] LABS: Urine Appearance Clear (CLEAR); Urine Color Yellow (Yellow)
[2019-12-03 18:22] LABS: Bilirubin Urine Neg (NEGATIVE); Blood Urine Neg (Negative); Glucose Urine UA Norm (Normal); Ketones Urine Negative (Negative); Leukocyte Esterase Urine Negative (Negative); Nitrate Urine Negative (Negative); Protein Urine Neg (Negative); Urobilinogen Urine Norm (Negative); pH Urine 6.5 (5-7)
[2019-12-03] MEDS: iohexol 300 mg/mL 100 mL Btl IV (18:32)
[2019-12-03 18:46] VITALS: BP 125/71; PULSE 68; RESP 18
[2019-12-03] MEDS: morphine 4 mg/mL SDV 1 mL IVP ×2 (19:06→20:57)
--- NOTE | 2019-12-03 19:45 | CTR_ITS ---
PROCEDURE INFORMATION: Exam: CT Abdomen And Pelvis Without Contrast Exam date and time: 12/03/2019 8:01 PM Age: 73 years old Clinical indication: Condition or disease; Other: Possible abd mass; Additional info: Abdominal mass TECHNIQUE: Imaging protocol: Computed tomography of the abdomen and pelvis without contrast. Total DLP: 538.69 mGy-cm Radiation optimization: All CT scans at this facility use at least one of these dose optimization techniques: automated exposure control; mA and/or kV adjustment per patient size (includes targeted exams where dose is matched to clinical indication); or iterative reconstruction. COMPARISON: CT abdomen pelvis con [id number] 01/10/2016 8:58 PM FINDINGS: Tubes, catheters and devices: Pacemaker. Lungs: Limited assessment lung bases reveals COPD/chronic bronchitis/emphysema. Pacemaker. Liver: Rare hepatic calcification of antecedent granulomatous disease. Gallbladder and bile ducts: Status post cholecystectomy. Mild intra and extrahepatic biliary ectasia essentially stable since 2016. Pancreas: Pancreas as imaged unremarkable. No visible gross pancreatic ductal ectasia. Spleen: Status post splenectomy. Adrenals: Small left adrenal adenoma stable. Kidneys and ureters: Intravenous contrast within the collecting system of the kidneys, ureters, and urinary bladder from a previous please contrasted CT chest examination same date at 6:25 p.m.. Kidneys unremarkable. No hydronephrosis or perinephric fluid identified. Stomach and bowel: Nonobstructive bowel pattern. No visible evidence of adynamic or reactive ileus. No visible evidence of acute diverticulitis. Heavy fecal residue consistent with constipation. Appendix: No evidence of appendicitis. Intraperitoneal space: Unremarkable. No free air. No significant fluid collection. Vasculature: The abdominal aorta is nonaneurysmal but demonstrates extensive arterial sclerotic disease. In Lymph nodes: Unremarkable. No enlarged lymph nodes. Bladder: No visible gross filling defect of the urinary bladder. Reproductive: Unremarkable as visualized for age. Bones/joints: No visible osteolytic or osteoblastic destructive process. Osteopenia/osteoporosis. Old compression deformity T12. Soft tissues: Unremarkable. Other findings: Cachexia. CT/CT abdomen pelvis con [id number] IMPRESSION: 1. No visible evidence for active or acute intra-abdominal or pelvic pathologic process. 2. Constipation. 3. Cachexia. 4. Other nonurgent, nonemergent, chronic, and age related findings as detailed in text above. Radiation Dose CTDIVOL = (mGy): DLP = 538.69 (mGy-cm)
--- NOTE | 2019-12-03 19:45 | CTR_ITS ---
PROCEDURE INFORMATION: Exam: CT Head Without Contrast Exam date and time: 12/03/2019 8:01 PM Age: 73 years old Clinical indication: Weakness, extremity; Additional info: HX of stroke, generalized weakness TECHNIQUE: Imaging protocol: Computed tomography of the head without contrast. Total DLP: 874.3 mGy-cm Radiation optimization: All CT scans at this facility use at least one of these dose optimization techniques: automated exposure control; mA and/or kV adjustment per patient size (includes targeted exams where dose is matched to clinical indication); or iterative reconstruction. COMPARISON: CT head wo con* [id number] 01/17/2015 10:11 AM FINDINGS: Brain: This is essentially a contrast enhanced examination of the brain. CT chest with contrast performed at 6:25 p.m. same date. No visible evidence of active or acute intracranial pathologic process. No visible evidence of acute or subacute infarction, hemorrhagic event, mass, visible neoplastic process, focal or generalized edema or demyelination. Mild small vessel ischemic disease. Ventricles: Unremarkable for age. No ventriculomegaly. Bones/joints: Unremarkable. No acute fracture. Sinuses: No visible evidence for active paranasal sinus disease. Mastoid air cells: Visualized mastoid air cells are well aerated. Soft tissues: Unremarkable. Vasculature: Mild cerebral arterial sclerosis. CT/CT head wo con* [id number] IMPRESSION: 1. No visible evidence of active or acute intracranial pathologic process. 2. Mild small vessel ischemic disease. Radiation Dose CTDIVOL = (mGy): DLP = 874.3 (mGy-cm)
[2019-12-03 19:50] VITALS: BP 139/70; PULSE 94; RESP 26
--- NOTE | 2019-12-03 20:09 | PM.HP ---
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 Patient states that roughly a year ago, he suffered a left-sided CVA, he was admitted at [facility] [place], he received 3 months of rehab, was discharged home, he has residual right lower extremity weakness with right lower extremity inversion. Patient states that he lives at home with his , his son and his . States that he can carry out activities of daily living on his own, but requires assistance, requires a cane with ambulation, has a lift chair. Patient states that for the past 6 months he has had generalized weakness of his upper and lower extremities, fatigue, malaise, poor appetite, significant weight loss although he cannot quantify how much. Patient states that he has had a few falls, last fall was 48 hours ago, when he tripped on his cane, no loss of consciousness, no head trauma, no seizure-like episodes. Patient states that from his stroke, he has residual right lower extremity weakness, for which he uses a cane. States that he has had generalized weakness of his upper lower extremities that is been becoming much more pronounced, progressively getting worse. He also has poor appetite, states that his last meal was this morning, when he ate a few bites of barnes and eggs his had prepared. Patient states that he had a colonoscopy 3 years ago, few polyps were found, no abdominal pain, no GERD, no bloody or black stools. Denies family history of colon cancer. States that he was diagnosed with a UTI, is on Levaquin, has 1 day remaining, denies history of enlarged prostate, denies family history of prostate cancer Patient is a smoker, has a chronic productive cough, green phlegm, no shortness of breath, no cough, no URI symptoms, no hemoptysis, no known diagnosis of COPD, but has recently been using a nebulizer provided by his primary care provider Denies any recurrent strokelike symptoms, no focal neurologic deficits, no losses of his vision, does have trouble balancing himself, no trouble swallowing, no changes in his sensations Patient denies chest pain, shortness of breath, does have lightheadedness, dizziness with changing positions Review of Systems Const: Denies: fever or chills Eyes: Denies: change in vision ENMT: Denies: throat pain or mouth pain Card: Denies: chest pain, palpitations or irregular heart rhythm Resp: Reports: productive cough; Denies: shortness of breath, wheezing, stridor or coughing up blood GI: Reports: constipation; Denies: abdominal pain, nausea, vomiting, vomiting blood, difficulty swallowing, diarrhea or blood in stool : Denies: flank pain, difficulty urinating, painful urination, urinary frequency or urinary urgency Musc: Reports: back pain; Denies: neck pain or extremity pain Skin/Breast: Denies: rash Neuro: Reports: weakness in extremities, difficulty walking, frequent falls and dizziness; Denies: headache, numbness in extremities, confusion, behavioral changes, slurred speech, difficulty communicating thoughts or seizure-like activity Psych: Reports: anxiety; Denies: depression Endo: Denies: excessive urination Jacob/Lymph: Denies: easy bruising All/Imm: Denies: hives Medications/Allergies Home Medications Medication Instructions Recorded Confirmed Last Taken Type famotidine 40 mg PO BID 12/03/19 12/03/19 Unknown History gabapentin 300 mg PO BID 12/03/19 12/03/19 Unknown History hydrocodone-acetaminophen 1 tab PO BID 12/03/19 12/03/19 Unknown History ipratropium bromide 0.2 ml INHALATION Q12H PRN 12/03/19 12/03/19 Unknown History levofloxacin 500 mg PO DAILY 12/03/19 12/03/19 Unknown History lorazepam 1 mg PO Q8H PRN 12/03/19 12/03/19 Unknown History mirtazapine 15 mg PO DAILY 12/03/19 12/03/19 Unknown History omeprazole 40 mg PO DAILY 12/03/19 12/03/19 Unknown History Allergies Allergy/AdvReac Type Severity Reaction Status Date / Time Penicillins Allergy ALGY-Hives Verified 12/03/19 17:17 Sulfa (Sulfonamide Allergy ALGY-Hives Verified 12/03/19 17:17 Antibiotics) PFSH Acute PFSH: Surgical History (Updated 12/03/19 @ 20:18 by Russ Wiggins MD) History of appendectomy History of cholecystectomy Social History (Updated 12/03/19 @ 20:18 by Russ Wiggins MD) Smoking and tobacco status: former smoker Alcohol intake: never Substance/Drug Use: never Vitals/I&O/Wt Last Vital Signs Temp 97.8 F 12/03/19 17:03 Pulse 94 12/03/19 19:50 Resp 26 H 12/03/19 19:50 BP 139/70 12/03/19 19:50 Pulse Ox 95 12/03/19 18:11 Weight last 48 hrs Weight 49.895 kg Physical Exam Const: COMMON NORMALS: no apparent distress and oriented x3 GENERAL APPEARANCE: cooperative and frail appearing NUTRITIONAL APPEARANCE: thin and underweight HENMT: COMMON NORMALS: normocephalic Eye: COMMON NORMALS: PERRL and EOMs intact bilaterally Neck/C-Spine: COMMON NORMALS: full ROM GENERAL: Yes lymphadenopathy Lymphadenopathy location: anterior cervical and supraclavicular hard and fixed THYROID: thyroid normal CERVICAL SPINE: Yes cervical ROM normal Lymph: LYMPHATIC: lymphadenopathy (Supraclavicular lymphadenopathy, anterior cervical lymphadenopathy, fixed) Chest: COMMONS NORMALS: inspection of chest normal Resp: COMMON NORMALS: normal respiratory effort, no retractions, no use of accessory muscles, clear to auscultation bilaterally and percussion normal Cardio: COMMON NORMALS: no JVD, regular rate, regular rhythm, S1 normal heart sound, S2 normal heart sound, no gallops, no clicks, no murmurs and no rub GI: COMMON NORMALS: normal to inspection, nondistended, normoactive bowel sounds, soft to palpation, non-tender and no hepatosplenomegaly OTHER: Abdominal mass palpated, below the xiphoid, 1 x 1 cm, hard Cachexia : COMMON NORMALS: Yes no CVA tenderness Back/Pelvis: COMMON NORMALS: no CVA tenderness, thoracic and lumbar spine normal to inspection and no thoracic nor lumbar tenderness Extremity: COMMON NORMALS: normal to inspection OTHER: Right lower extremity inversion Neuro: COMMON NORMALS: oriented x3 and CN's II-XII intact bilaterally (Right cranial nerve nerve VII in V2 distribution, unable to to smile from the corner of his lip) SENSORIUM/ORIENTATION: Yes alert and Yes oriented to person OTHER: Has tongue fasciculations Bilateral upper extremities strength bilaterally 2 out of 5 Patient can barely keep his head lifted above his pillow Right lower extremity, inverted, right lower extremity strength 1 out of 5 Left lower extremity strength 3 out of 5 Generalized weakness Data : 12/03/19 17:47 12/03/19 17:47 A&P Assessment and plan (1) Generalized weakness: -Patient has profound upper and lower extremity weakness, tongue fasciculations, right lower extremity is much more weak compared to left lower extremity, can barely keep his head elevated off the bed, has cachexia, severe protein calorie malnutrition -Had a colonoscopy 3 years ago polyps found, no bloody stools -No history of prostate cancer, is been sometime since he has had his prostate checked -Previous history of smoker, chronic productive cough, CT chest in the ER did not reveal any significant lung cancer -No history of CAD, no history of chest pain, no history of CHF -Patient did have an abdominal density just below the xiphoid, does have a family history of pancreatic cancer, will do CT of the abdomen -Does have a history of stroke, was with residual right lower extremity weakness, inversion, generalized weakness, will do CT of the head -If the above work-up comes back unremarkable, I feel that likely patient's entirety of his symptoms could be explained by ALS, poor appetite, fatigue, malaise, overall generalized weakness, which is quite profound, falls, tongue fasciculations, he also has loss of intrinsic muscles of his hands -Patient is adamant that he wants to go home, PT OT ordered, does not want to go to the shelter -Patient does not want a feeding tube, his BMI is 14.9, can consider doing a swallow evaluation in the morning -We will give gentle hydration, clinically monitor overnight -TSH, PSA -PT OT consulted, nutrition consulted, case management consulted Status: Acute (2) Left-sided cerebrovascular accident (CVA): With residual right lower extremity deficits, strength 1 out of 5 compared to 3 out of 5 on the left Right lower extremity inverted Status: Acute (3) Chronic back pain: Status: Acute (4) Protein calorie malnutrition: Status: Acute (5) Cachexia: Status: Acute (6) Severe muscle deconditioning: Status: Acute (7) Frequent falls: Status: Acute Attestations Medical Necessity Statement*: Patient requires requires hospitalization, inpatient, greater than 2 midnights for generalized weakness, cachexia, protein calorie malnutrition Coding Level of Care Code Acute Makeup Artistry Instructor for Chg Fwd Diagnoses Generalized weakness R53.1 Left-sided cerebrovascular accident (CVA) I63.9 Chronic back pain M54.9; G89.29 Protein calorie malnutrition E46 Cachexia R64 Severe muscle deconditioning R29.898 Frequent falls R29.6
[2019-12-03] MEDS: ondansetron 2 mg/ML SDV 2 mL 4 MG IVP (20:57)
[2019-12-03 21:56] LABS: Estmated Average Glucose 108; Hemoglobin A1C 5.4 % (4.0-6.0)
[2019-12-03] MEDS: enoxaparin 40 mg/0.4 mL Syringe SUBCUT (21:57)
[2019-12-03] MEDS: sodium chloride 0.9% 1,000 ML 75 ML IV (21:58)
[2019-12-03 22:05] LABS: Chol HDL Ratio 3.05 mg/dL (1.0-5.00); Cholesterol 125 mg/dL (0-200); HDL Cholesterol 41 mg/dL (60-100); LDL Cholesterol Calculated 63 mg/dL (50-129); LDL HDL Ratio 1.54 RATIO (0.00-3.22); Thyroid Stimulating Hormone 1.23 uIU/mL (0.27-4.20); Triglycerides 103 mg/dL (0-150)
[2019-12-03 22:29] LABS: NT Pro B Type Natriuretic Pept 120 pg/mL (0-125); Prostate Specific Antigen Scr < 0.02 ng/mL (0-4)
[2019-12-04] VITALS (8 sets, daily range): BP systolic 97–107; BP diastolic 56–62; PULSE 66–68; RESP 16–20; TEMP 36.5–36.9; O2SAT 90–93
[2019-12-04 01:21] LABS: C Reactive Protein 7.9 mg/L (0.0-4.9)
[2019-12-04] MEDS: TRAMadol 50 mg Tablet PO (02:38)
[2019-12-04 06:06] LABS: Basophils % 0.4 %; Eosinophils # 0.3 10^3/uL (0.0-0.8); Eosinophils % 3.2 %; Hematocrit 35.4 % (42.0-52.0); Hemoglobin 11.9 g/dL (11.7-16.6); Lymphocytes # 3.4 10^3/uL (0.8-4.8); Lymphocytes % 35.7 %; Mean Corpuscular HGB Conc 33.6 g/dL (30.0-36.0); Mean Corpuscular Hemoglobin 35.8 pg (28.0-34.0); Mean Corpuscular Volume 106.6 fL (80-94); Mean Platelet Volume 9.9 fL (7.4-10.4); Monocytes # 0.9 10^3/uL (0.2-0.9); Monocytes % 9.6 %; Neutrophils # 4.9 10^3/uL (1.8-7.7); Neutrophils % 50.9 %; Nucleated Red Blood Cells % 0 %; Platelet Count 277 10^3/cmm (130-400); Red Blood Count 3.32 10^6/uL (4.1-5.3); Red Cell Distribution Width 15.2 % (12.1-15.1); White Blood Count 9.6 10^3/uL (4.0-10.0)
[2019-12-04 06:23] LABS: Alanine Aminotransferase 14 U/L (0-41); Albumin Level 3.1 g/dL (3.5-5.2); Alkaline Phosphatase 140 IU/L (40-130); Aspartate Amino Transferase 27 U/L (0-40); Blood Urea Nitrogen 9 mg/dL (8-23); Calcium 9.3 mg/dL (8.5-10.5); Carbon Dioxide 30 mmol/L (22-29); Chloride 102 mmol/L (98-107); Globulin 3.3 g/dL (1.3-4.6); Glucose 98 mg/dL (65-115); Magnesium 1.9 mg/dL (1.7-2.3); Osmolality Calculated 284 mOsm/kg (285-295); Phosphorus 3.3 mg/dL (2.5-4.5); Sodium 139 mmol/L (136-145); Total Bilirubin 0.3 mg/dL (0.15-1.2); Total Protein 6.4 g/dL (6.6-8.7)
[2019-12-04 06:58] LABS: Erythrocyte Sedimentation Rate 71 mm/hr (0-10)
[2019-12-04] MEDS: pantoprazole DR 40 mg Tablet PO (08:22)
[2019-12-04] MEDS: levoFLOXacin 500 mg Tablet PO (08:22)
[2019-12-04] MEDS: gabapentin 300 mg Capsule PO (08:22)
[2019-12-04] MEDS: mirtazapine 15 mg Tablet PO (08:22)
--- NOTE | 2019-12-04 09:12 | P.PN_ITS ---
Subjective Subjective: Interval history: Chart extensively reviewed including old [facility] records which detail prior hospital visits for right hemiparesis and multiple CVAs in the past as far back as 2009. Patient seen and examined, reports feeling much better today, has been ambulatory to the bathroom and did well with PT; would like to go home. Declines HH. Good appetite particularly overnight. Medications: Reviewed: Yes Medication Review Details: Active Medications Generic Name Dose Route Start Last Admin Trade Name Freq PRN Reason Stop Dose Admin Hydrocodone Bitart /Acetaminophen 1 tab 12/04/19 09:00 12/04/19 08:24 [place] 5-325 Mg PO Not Given BID KAY Albuterol/Ipratrop ium 3 ml 12/03/19 22:10 Duoneb INHALATION Q4H.RESPIRATORY P RN SHORTNESS OF SARIAH TH Enoxaparin Sodium 40 mg 12/03/19 21:20 12/03/19 21:57 Lovenox SUBCUT 40 mg Q24H KAY Administration Gabapentin 300 mg 12/04/19 09:00 12/04/19 08:22 Neurontin PO 300 mg BID KAY Administration Sodium Chloride 1,000 mls @ 75 ml s/hr 12/03/19 21:20 12/03/19 21:58 Sodium Chloride 0.9% IV 75 mls/hr .[id number] KAY Administration Ipratropium Bromid e 0.5 mg 12/03/19 21:20 Atrovent Neb INHALATION Q12H PRN Shortness Of Sariah th Levofloxacin 500 mg 12/04/19 09:00 12/04/19 08:22 Levaquin PO 12/04/19 23:59 500 mg DAILY KAY Administration Protocol Lorazepam 1 mg 12/03/19 21:20 Ativan PO Q8H PRN anxiety Lorazepam 1 mg 12/03/19 21:20 Ativan PO Q8H PRN Anxiety Mirtazapine 15 mg 12/04/19 09:00 12/04/19 08:22 Remeron PO 15 mg DAILY KAY Administration Ondansetron HCl 4 mg 12/03/19 21:20 Zofran IVP Q8H PRN vomiting, or N/V if npo Pantoprazole Sodiu m 40 mg 12/04/19 09:00 12/04/19 08:22 Protonix PO 40 mg DAILY KAY Administration aspirin Allergy (Mild, Verified 12/04/19 09:11) Unknown Iodinated Contrast Media Allergy (Mild, Verified 12/04/19 09:11) ALGY-Hives Penicillins Allergy (Verified 12/03/19 17:17) ALGY-Hives Sulfa (Sulfonamide Antibiotics) Allergy (Verified 12/03/19 17:17) ALGY-Hives Vitals/I&O/Wt Last Vital Signs Temp 98.1 F 12/04/19 07:05 Pulse 67 12/04/19 07:50 Resp 18 12/04/19 07:50 BP 97/56 12/04/19 07:05 Pulse Ox 91 12/04/19 07:50 12/03/19 12/04/19 12/04/19 22:59 06:59 14:59 Intake Total 222 / 222 300 / 522 120 / 120 Balance 222 / 222 300 / 522 120 / 120 Weight last 48 hrs Weight 49.895 kg Physical Exam Const: COMMON NORMALS: no apparent distress and oriented x3 GENERAL APPEARANCE: cooperative, comfortable, frail appearing and appears older than stated age NUTRITIONAL APPEARANCE: cachectic ORIENTATION/CONSCIOUSNESS: Yes awake HENMT: COMMON NORMALS: normocephalic, head/scalp atraumatic, hearing grossly normal bilaterally and moist oral mucous membranes HEAD & SCALP: normocephalic and atraumatic Eye: COMMON NORMALS: PERRL, EOMs intact bilaterally and conjunctivae normal CONJUNCTIVA: Yes conjunctivae normal PUPIL: Yes PERRL Neck/C-Spine: COMMON NORMALS: full ROM GENERAL: Yes normal visual inspection and Yes trachea midline Resp: COMMON NORMALS: normal respiratory effort, no retractions, no use of accessory muscles and clear to auscultation bilaterally EFFORT & INSPECTION: Yes able to speak in complete sentences, Yes symmetric chest movement and No tachypneic AUSCULTATION: clear to auscultation bilaterally Cardio: COMMON NORMALS: regular rate, regular rhythm, S1 normal heart sound, S2 normal heart sound and no murmurs RATE: regular rate RHYTHM: regular rhythm HEART SOUNDS: S1 normal and S2 normal GI: COMMON NORMALS: normal to inspection, nondistended, normoactive bowel sounds, soft to palpation and non-tender INSPECTION: Yes scaphoid PALPATION: Yes soft Extremity: COMMON NORMALS: no clubbing, cyanosis or edema and no pedal edema NARRATIVE EXTREMITY EXAM: -noted slight inversion of R foot Neuro: COMMON NORMALS: oriented x3, moves all extremities, no focal motor deficits and no sensory deficits noted Psych: COMMON NORMALS: mental status grossly normal, thought process normal, cooperative, affect normal and speech normal SPEECH: Yes normal speech THOUGHT PROCESS: normal thought process Skin: COMMON NORMALS: no rashes or lesions noted, no jaundice, no petechiae and no mottling NARRATIVE SKIN EXAM: -thin, dry skin GENERAL SKIN EXAM: no rashes or lesions noted Data : 12/04/19 05:38 12/04/19 05:38 A&P Assessment and plan (1) Generalized weakness: -Ongoing and progressive generalized weakness, worse on the right, in addition to frequent falls, muscle atrophy and deconditioning -Extensive review of medical record shows prior hospital visits for unilateral hemiparesis and prior CVAs as far back as 2009 -Unlikely to be CVA given chronicity; CT head negative for acute findings -Cluster of signs and symptoms suspicious for possible neurological pathology such as ALS; may benefit from formal neurology evaluation ([facility] population health coach today) -no apparent evidence of malignancy based on labs, imaging including PSA, TSH -no evidence of infection at this time, UA negative, CXR unremarkable, no leukocytosis, afebrile, lactate wnl. Per med list has been on levaquin though unsure what this is for -CPK, calcium wnl, noted elevated inflammatory markers which is non-specific but could indicate some type of inflammatory process e.g. autoimmune etiology. Will order SPEP, UPEP, RF, NORIS -fall precautions, PT/OT evaluations appreciated; OT recommended continued therapy but patient declined -has pacemaker so cannot do MRI Status: Chronic (2) Severe muscle deconditioning: Status: Chronic (3) Protein calorie malnutrition: -at least moderate protein calorie malnutrition, cachexia, BMI-15 kg/m2 -nutrition consult -liberal diet, Ensure supplements -on Remeron -ST evaluation to assess swallowing Status: Chronic Qualifiers: Protein-calorie malnutrition severity: moderate Qualified Code(s): E44.0 - Moderate protein-calorie malnutrition Additional A&P Information -prior CVAs with residual RLE weakness -Chronic back pain; pain control as needed -Chronic diastolic CHF, no acute exacerbation, last Echo in 2012, EF-57%, G1DD -hx of SSS s/p pacemaker -hx of atrial fibrillation -chronic constipation, with noted evidence of this on imaging; bowel regimen -COPD, chronic smoker -GERD; on famotidine -BPH -HTN -RLS -GI ppx with famotidine -DVT ppx with Lovenox -Dispo: return home with family support per his preference -Code status: DNR/DNI; ok with ICU admission if necessary Attestations Medical Necessity Statement*: Discharge home this afternoon. Time Spent in Patient Care: Greater than 35 minutes (>than 50% of time spent in counselling and/or direct pt care on unit) . Coding Level of Care Code Acute Livestock Slaughterer for Chg Fwd Exam Comprehensive Diagnoses Generalized weakness R53.1 Severe muscle deconditioning R29.898 Protein calorie malnutrition E44.0 Protein-calorie malnutrition severity: moderate
[2019-12-04] MEDS: polyethylene glycol 3350 Pkt 17 gm PO (10:21)
[2019-12-04] MEDS: lactulose oral liq 20 gm/30 mL UDC PO ×2 (10:21→15:30)
[2019-12-04] MEDS: sodium chloride 0.9% 1,000 ML 75 ML IV (10:21)
[2019-12-04 10:35] LABS: Vitamin B12 771 pg/mL (232-1245)
--- NOTE | 2019-12-04 14:39 | PM.DCS ---
Discharge Providers Date of Admission: 12/03/19 19:33 Date of Discharge: December 04, 2019 Attending Provider at Admission: Russ Wiggins MD Attending Provider at Discharge: Sandi Jordan MD Primary Care Provider: Dr. Manuel Ambrose Diagnoses at Discharge Discharge Diagnosis (1) Generalized weakness: Status: Chronic Problem details: -Ongoing and progressive generalized weakness, worse on the right, in addition to frequent falls, muscle atrophy and deconditioning -Extensive review of medical record shows prior hospital visits for unilateral hemiparesis and prior CVAs as far back as 2009 -Unlikely to be CVA given chronicity; CT head negative for acute findings -Cluster of signs and symptoms suspicious for possible neurological pathology such as ALS; may benefit from formal neurology evaluation ([facility] regional manager today) -no apparent evidence of malignancy based on labs, imaging including PSA, TSH -no evidence of infection at this time, UA negative, CXR unremarkable, no leukocytosis, afebrile, lactate wnl. Per med list has been on levaquin though unsure what this is for -CPK, calcium wnl, noted elevated inflammatory markers which is non-specific but could indicate some type of inflammatory process e.g. autoimmune etiology. Will order SPEP, UPEP, RF, NORIS -fall precautions, PT/OT evaluations appreciated; OT recommended continued therapy but patient declined -has pacemaker so cannot do MRI (2) Severe muscle deconditioning: Status: Chronic (3) Protein calorie malnutrition: Status: Chronic Qualifiers: Protein-calorie malnutrition severity: moderate Qualified Code(s): E44.0 - Moderate protein-calorie malnutrition Other Information Additional DC diagnoses/information: -prior CVAs with residual RLE weakness -Chronic back pain; pain control as needed -Chronic diastolic CHF, no acute exacerbation, last Echo in 2012, EF-57%, G1DD -hx of SSS s/p pacemaker -hx of atrial fibrillation -chronic constipation, with noted evidence of this on imaging; bowel regimen -COPD, chronic smoker -GERD; on famotidine -BPH -HTN -RLS Reason for Visit Reason for Visit: Reason For Visit: Weakness Hospital Course Hospital Course: Patient was admitted to the medical surgical floor and hemodynamic status monitored closely. He had presented with significant generalized weakness and was evaluated by both physical therapy and occupational therapy. Recommendation was made to continue therapy at home which patient declined as he states that he has adequate support from family. He did work well with therapy and with some dietitian assistant was able to be moderately ambulatory. His baseline is assistance with some ADLs, ambulation with family and lift chair. Physical therapy has ordered a walker for additional safety. Work-up done during this hospital visit has been unremarkable though there are some labs pending including UPEP, SPEP, NORIS which primary care provider can follow-up on. Given his overall frailty, he is high risk for readmission. Per his preference as documented in my progress note he would like to go home today. We will arrange follow-up with his primary care provider. Of note, given patient's significant weakness on presentation, initial impression was that he would require inpatient stay, however, he recovered faster than anticipated hence discharge today. Discharge Summary: -Patient to follow-up with primary care provider within 1 week Physical Exam Const: COMMON NORMALS: no apparent distress and oriented x3 GENERAL APPEARANCE: cooperative, comfortable, frail appearing and appears older than stated age NUTRITIONAL APPEARANCE: cachectic ORIENTATION/CONSCIOUSNESS: Yes awake HENMT: COMMON NORMALS: normocephalic, head/scalp atraumatic, hearing grossly normal bilaterally and moist oral mucous membranes HEAD & SCALP: normocephalic and atraumatic Eye: COMMON NORMALS: PERRL, EOMs intact bilaterally and conjunctivae normal CONJUNCTIVA: Yes conjunctivae normal PUPIL: Yes PERRL Neck/C-Spine: COMMON NORMALS: full ROM GENERAL: Yes normal visual inspection and Yes trachea midline Resp: COMMON NORMALS: normal respiratory effort, no retractions, no use of accessory muscles and clear to auscultation bilaterally EFFORT & INSPECTION: Yes able to speak in complete sentences, Yes symmetric chest movement and No tachypneic AUSCULTATION: clear to auscultation bilaterally Cardio: COMMON NORMALS: regular rate, regular rhythm, S1 normal heart sound, S2 normal heart sound and no murmurs RATE: regular rate RHYTHM: regular rhythm HEART SOUNDS: S1 normal and S2 normal GI: COMMON NORMALS: normal to inspection, nondistended, normoactive bowel sounds, soft to palpation and non-tender INSPECTION: Yes scaphoid PALPATION: Yes soft Extremity: COMMON NORMALS: no clubbing, cyanosis or edema and no pedal edema NARRATIVE EXTREMITY EXAM: -noted slight inversion of R foot Neuro: COMMON NORMALS: oriented x3, moves all extremities, no focal motor deficits and no sensory deficits noted Psych: COMMON NORMALS: mental status grossly normal, thought process normal, cooperative, affect normal and speech normal SPEECH: Yes normal speech THOUGHT PROCESS: normal thought process Skin: COMMON NORMALS: no rashes or lesions noted, no jaundice, no petechiae and no mottling NARRATIVE SKIN EXAM: -thin, dry skin GENERAL SKIN EXAM: no rashes or lesions noted Discharge Data Data Completed and Pending: Completed Studies During Hospitalization Category Date Time Status CT abdomen pelvis wo con [id number] Urge nt Cat Scan 12/03/19 19:[address] chest w con* [id number] Stat Cat Scan 12/03/19 18:[address] head wo con* 7 [id number] Urgent Cat Scan 12/03/19 19:45 Completed XR chest 1V ras ble [id number] Stat Exams 12/03/19 17:25 Completed Pending at discharge Category Date Time Status NORIS Screen w/ Ref thierry Routine Lab 12/04/19 09:35 Received Complete Blood Co unt w/Auto AM LABS Lab 12/05/19 04:00 Ordered Complete Blood Co unt w/Auto AM LABS Lab 12/06/19 04:00 Ordered Comprehensive Met abolic Panel AM LA BS Lab 12/05/19 04:00 Ordered Comprehensive Met abolic Panel AM LA BS Lab 12/06/19 04:00 Ordered Immunochemical Fe christopher OCB Stat Lab 12/03/19 17:26 Uncollected Immunofixation Se rum Routine Lab 12/04/19 09:35 Received Magnesium AM LABS Lab 12/05/19 04:00 Ordered Magnesium AM LABS Lab 12/06/19 04:00 Ordered Phosphorus AM LAB S Lab 12/05/19 04:00 Ordered Phosphorus AM LAB S Lab 12/06/19 04:00 Ordered Total Protein Michelle ctrophoresis Routi ne Lab 12/04/19 09:35 Received Urine Protein Michelle ctrop Random Routi ne Lab 12/04/19 11:00 Received Labs from last 24 hours 12/04/19 12/04/19 12/04/19 05:38 05:38 05:38 WBC RBC Hgb Hct MCV MCH MCHC RDW Plt Count MPV Neut % (Auto) Lymph % (Auto) [place] % (Auto) Eos % (Auto) Baso % (Auto) Neut # (Auto) Lymph # (Auto) [place] # (Auto) Eos # (Auto) Baso # (Auto) Nucleated RBC % (a uto) Nucleated RBCs # ESR Specimen Type Sample Site ABG pH ABG pCO2 ABG pO2 ABG HCO3 ABG O2 Saturation ABG Base Excess Jarvis Test A-a O2 Gradient Hematocrit Hgb O2 Saturation Carboxyhemoglobin Methemoglobin Total Hemoglobin Sodium 139 Potassium 4.0 Glucose 98 Ionized Calcium O2 Delivery Device FiO2 [facility] Programmer ID Chloride 102 Carbon Dioxide 30 H Anion Gap 11.0 BUN 9 Creatinine 0.9 Estimat Average Gl ucose Hemoglobin A1c Calculated Osmolal ity 284 L Lactate Calcium 9.3 Phosphorus 3.3 Magnesium 1.9 Total Bilirubin 0.3 AST 27 ALT 14 Alkaline Phosphata se 140 H Creatine Kinase C-Reactive Protein NT-Pro-B Natriuret Pep Total Protein 6.4 L Albumin 3.1 L Globulin 3.3 Triglycerides Cholesterol LDL Cholesterol, C alc HDL Cholesterol LDL/HDL Ratio Cholesterol/HDL Ra jeb Lipase PSA Screen Vitamin B12 771 TSH Urine Color Urine Appearance Urine pH Ur Specific Gravit y Urine Protein Urine Glucose (UA) Urine Ketones Urine Blood Urine Nitrate Urine Bilirubin Urine Urobilinogen Ur Leukocyte [place] ase Serum Ketones Rheumatoid Factor 16.0 H 12/04/19 12/03/19 12/03/19 05:38 18:09 17:47 WBC 9.6 RBC 3.32 L Hgb 11.9 Hct 35.4 L MCV 106.6 H MCH 35.8 H MCHC 33.6 RDW 15.2 H Plt Count 277 MPV 9.9 Neut % (Auto) 50.9 Lymph % (Auto) 35.7 [place] % (Auto) 9.6 Eos % (Auto) 3.2 Baso % (Auto) 0.4 Neut # (Auto) 4.9 Lymph # (Auto) 3.4 [place] # (Auto) 0.9 Eos # (Auto) 0.3 Baso # (Auto) 0.0 Nucleated RBC % (a uto) 0 Nucleated RBCs # 0.0 ESR Specimen Type Sample Site ABG pH ABG pCO2 ABG pO2 ABG HCO3 ABG O2 Saturation ABG Base Excess Jarvis Test A-a O2 Gradient Hematocrit Hgb O2 Saturation Carboxyhemoglobin Methemoglobin Total Hemoglobin Sodium Potassium Glucose Ionized Calcium O2 Delivery Device FiO2 [facility] Programmer ID Chloride Carbon Dioxide Anion Gap BUN Creatinine Estimat Average Gl ucose Hemoglobin A1c Calculated Osmolal ity Lactate Calcium Phosphorus Magnesium Total Bilirubin AST ALT Alkaline Phosphata se Creatine Kinase C-Reactive Protein 7.9 H NT-Pro-B Natriuret Pep 120 Total Protein Albumin Globulin Triglycerides Cholesterol LDL Cholesterol, C alc HDL Cholesterol LDL/HDL Ratio Cholesterol/HDL Ra jeb Lipase PSA Screen < 0.02 Vitamin B12 TSH Urine Color Yellow Urine Appearance Clear Urine pH 6.5 Ur Specific Gravit y 1.010 Urine Protein Neg Urine Glucose (UA) Norm Urine Ketones Negative Urine Blood Neg Urine Nitrate Negative Urine Bilirubin Neg Urine Urobilinogen Norm Ur Leukocyte [place] ase Negative Serum Ketones Rheumatoid Factor 12/03/19 12/03/19 12/03/19 17:47 17:47 17:47 WBC RBC Hgb Hct MCV MCH MCHC RDW Plt Count MPV Neut % (Auto) Lymph % (Auto) [place] % (Auto) Eos % (Auto) Baso % (Auto) Neut # (Auto) Lymph # (Auto) [place] # (Auto) Eos # (Auto) Baso # (Auto) Nucleated RBC % (a uto) Nucleated RBCs # ESR Specimen Type Sample Site ABG pH ABG pCO2 ABG pO2 ABG HCO3 ABG O2 Saturation ABG Base Excess Jarvis Test A-a O2 Gradient Hematocrit Hgb O2 Saturation Carboxyhemoglobin Methemoglobin Total Hemoglobin Sodium Potassium Glucose Ionized Calcium O2 Delivery Device FiO2 [facility] Programmer ID Chloride Carbon Dioxide Anion Gap BUN Creatinine Estimat Average Gl ucose 108 Hemoglobin A1c 5.4 Calculated Osmolal ity Lactate Calcium Phosphorus Magnesium Total Bilirubin AST ALT Alkaline Phosphata se Creatine Kinase C-Reactive Protein NT-Pro-B Natriuret Pep Total Protein Albumin Globulin Triglycerides 103 Cholesterol 125 LDL Cholesterol, C alc 63 HDL Cholesterol 41 L LDL/HDL Ratio 1.54 Cholesterol/HDL Ra jeb 3.05 Lipase PSA Screen Vitamin B12 TSH 1.23 Urine Color Urine Appearance Urine pH Ur Specific Gravit y Urine Protein Urine Glucose (UA) Urine Ketones Urine Blood Urine Nitrate Urine Bilirubin Urine Urobilinogen Ur Leukocyte [place] ase Serum Ketones Negative Rheumatoid Factor 12/03/19 12/03/19 12/03/19 17:47 17:47 17:47 WBC 10.5 H RBC 3.88 L Hgb 14.1 Hct 41.8 L MCV 107.7 H MCH 36.3 H MCHC 33.7 RDW 15.2 H Plt Count 281 MPV 9.8 Neut % (Auto) 52.4 Lymph % (Auto) 34.1 [place] % (Auto) 10.6 Eos % (Auto) 2.1 Baso % (Auto) 0.4 Neut # (Auto) 5.5 Lymph # (Auto) 3.6 [place] # (Auto) 1.1 H Eos # (Auto) 0.2 Baso # (Auto) 0.0 Nucleated RBC % (a uto) 0 Nucleated RBCs # 0.0 ESR Specimen Type Sample Site ABG pH ABG pCO2 ABG pO2 ABG HCO3 ABG O2 Saturation ABG Base Excess Jarvis Test A-a O2 Gradient Hematocrit Hgb O2 Saturation Carboxyhemoglobin Methemoglobin Total Hemoglobin Sodium 137 Potassium 4.4 Glucose 107 Ionized Calcium O2 Delivery Device FiO2 [facility] Programmer ID Chloride 97 L Carbon Dioxide 28 Anion Gap 16.4 BUN 7 L Creatinine 1.0 Estimat Average Gl ucose Hemoglobin A1c Calculated Osmolal ity 280 L Lactate 1.6 Calcium 10.4 Phosphorus Magnesium Total Bilirubin 0.4 AST 20 ALT 12 Alkaline Phosphata se 169 H Creatine Kinase 21 L C-Reactive Protein NT-Pro-B Natriuret Pep Total Protein 7.1 Albumin 3.7 Globulin 3.4 Triglycerides Cholesterol LDL Cholesterol, C alc HDL Cholesterol LDL/HDL Ratio Cholesterol/HDL Ra jeb Lipase 23 PSA Screen Vitamin B12 TSH Urine Color Urine Appearance Urine pH Ur Specific Gravit y Urine Protein Urine Glucose (UA) Urine Ketones Urine Blood Urine Nitrate Urine Bilirubin Urine Urobilinogen Ur Leukocyte [place] ase Serum Ketones Rheumatoid Factor 12/03/19 12/03/19 17:44 05:38 WBC RBC Hgb Hct MCV MCH MCHC RDW Plt Count MPV Neut % (Auto) Lymph % (Auto) [place] % (Auto) Eos % (Auto) Baso % (Auto) Neut # (Auto) Lymph # (Auto) [place] # (Auto) Eos # (Auto) Baso # (Auto) Nucleated RBC % (a uto) Nucleated RBCs # ESR 71 H Specimen Type Arterial Sample Site Radial, left ABG pH 7.45 ABG pCO2 41.2 ABG pO2 55.5 L ABG HCO3 28.6 H ABG O2 Saturation 91.9 ABG Base Excess 4.2 H Jarvis Test Pos A-a O2 Gradient 43.3 H Hematocrit 39.9 L Hgb O2 Saturation 82.4 L Carboxyhemoglobin 9.5 Methemoglobin 0.9 Total Hemoglobin 13.0 L Sodium 139.0 Potassium 3.8 Glucose 102.0 Ionized Calcium 1.3 O2 Delivery Device Room air FiO2 21.0 [facility] Programmer ID cak Chloride Carbon Dioxide Anion Gap BUN Creatinine Estimat Average Gl ucose Hemoglobin A1c Calculated Osmolal ity Lactate Calcium Phosphorus Magnesium Total Bilirubin AST ALT Alkaline Phosphata se Creatine Kinase C-Reactive Protein NT-Pro-B Natriuret Pep Total Protein Albumin Globulin Triglycerides Cholesterol LDL Cholesterol, C alc HDL Cholesterol LDL/HDL Ratio Cholesterol/HDL Ra jeb Lipase PSA Screen Vitamin B12 TSH Urine Color Urine Appearance Urine pH Ur Specific Gravit y Urine Protein Urine Glucose (UA) Urine Ketones Urine Blood Urine Nitrate Urine Bilirubin Urine Urobilinogen Ur Leukocyte [place] ase Serum Ketones Rheumatoid Factor Vitals: Last Vital Signs Temp 98.2 F 12/04/19 11:12 Pulse 66 12/04/19 11:12 Resp 20 H 12/04/19 11:12 BP 99/59 12/04/19 11:12 Pulse Ox 93 12/04/19 11:12 Discharge Plan Discharge Patient Disposition: Home, Self-Care Condition: Stable Prescriptions: New Miralax 17 gram Powder In Packet 17 g PO DAILY 30 Days Qty: 30 RF: 0 sennosides-docusate sodium 8.6-50 mg Tablet 2 tab PO BID 30 Days Qty: 120 RF: 0 Continued hydrocodone-acetaminophen 5-325 mg tablet 1 tab PO BID RF: 0 omeprazole 40 mg capsule,delayed release(DR/EC) 40 mg PO DAILY RF: 0 gabapentin 300 mg capsule 300 mg PO BID RF: 0 mirtazapine 15 mg tablet 15 mg PO DAILY RF: 0 lorazepam 1 mg tablet 1 mg PO Q8H PRN (Reason: Anxiety) RF: 0 levofloxacin 500 mg tablet 500 mg PO DAILY RF: 0 ipratropium bromide 0.02 % solution 0.2 ml inhalation Q12H PRN (Reason: Shortness Of Breath) RF: 0 Discontinued famotidine 40 mg tablet 40 mg PO BID RF: 0 Discharge Orders: Discharge Order (Routine); Ordered 12/04/19 Ordered By: Sandi Jordan Referrals: Manuel Ambrose [Family Provider] - 4-7 days (Post hospital discharge follow up) Discharge Diet: Regular Discharge Activity: Resume usual activity Discharge Attestations Time Spent in Discharge Care*: greater than 30 min Specific Discharge Activities: Specific discharge activities: educating patient, discussing with departmental shipping clerk/social workers/dc planners, documenting/other paperwork and evaluating patient/reviewing data Status at Discharge: Cognitive status at discharge: cognitively intact, Behavioral status at discharge: cooperative, Functional status at discharge: other assisted ambulation Overall status at discharge: patient is back to baseline Quality Metrics Clinical Quality Measures During this hospital stay, did patient experience: None Coding Level of Care Code Acute Medical Administrative Technician for Chg Fwd Diagnoses Generalized weakness R53.1 Severe muscle deconditioning R29.898 Protein calorie malnutrition E44.0 Protein-calorie malnutrition severity: moderate
[2019-12-05 05:02] LABS: PROTEIN, TOTAL 6.1 g/dL (6.1-8.1)
[2019-12-05 13:16] LABS: ALBUMIN 2.9 g/dL (3.8-4.8); ALPHA 1 GLOBULIN 0.4 g/dL (0.2-0.3); ALPHA 2 GLOBULIN 0.9 g/dL (0.5-0.9); BETA 1 GLOBULIN 0.3 g/dL (0.4-0.6); BETA 2 GLOBULIN 0.3 g/dL (0.2-0.5); GAMMA GLOBULIN 1.4 g/dL (0.8-1.7)
[2019-12-05 14:41] LABS: Creatinine, Random Urine 131 mg/dL (20-320); Protein, Total, Random 12 mg/dL (5-25); Protein/Creatinine Ratio 0.092 (0.022-0.128); Protein/Creatinine Ratio 92 mg/g creat (22-128)
[2019-12-05 15:35] LABS: Albumin,Urine Random 0 %; Alpha-1-Globulins Urine Random 0 %; Alpha-2-Globulins Urine Random 0 %; Beta-Globulin,Urine Random 0 %; Gamma Globulin,Urine Random 0 %
[2019-12-07 12:26] LABS: Anti-Nuclear Antibody Screen NEGATIVE (NEGATIVE)
== END 2019-12-04 16:19 | disposition home or self-care (01) | DRG 948 ==
LOC: ER 19:14 → MEDSURG 19:58
PROVIDERS: Family Medicine; Admitting Provider Family Medicine; Emergency Provider Emergency Medicine; Family Provider Family Medicine; Visit Provider Family Medicine
DX: R53.1 Weakness (principal); R64 Cachexia; Z68.1 Body mass index [BMI] 19.9 or less, adult; I50.32 Chronic diastolic (congestive) heart failure; E44.0 Moderate protein-calorie malnutrition; I69.351 Hemiplegia and hemiparesis following cerebral infarction affecting right dominant side; M62.50 Muscle wasting and atrophy, not elsewhere classified, unspecified site; Z91.81 History of falling; Z66 Do not resuscitate; J44.9 Chronic obstructive pulmonary disease, unspecified; K21.9 Gastro-esophageal reflux disease without esophagitis; G25.81 Restless legs syndrome; K59.09 Other constipation; F17.210 Nicotine dependence, cigarettes, uncomplicated; N40.0 Benign prostatic hyperplasia without lower urinary tract symptoms; I11.0 Hypertensive heart disease with heart failure; I48.91 Unspecified atrial fibrillation; I49.5 Sick sinus syndrome; Z95.0 Presence of cardiac pacemaker; G89.29 Other chronic pain; M54.9 Dorsalgia, unspecified
CPT/HCPCS: 12345; 36415; 36600; 70450; 71045; 71260; 74176; 80051; 80053; 80061; 81003; 82009; 82550; 82607; 82810; 83036; 83605; 83690; 83735; 83880; 83986; 84100; 84155; 84165; 84260; 84443; 85025; 85651; 86140; 86431; 92523; 92610; 93005; 94664; 96372; 96374; 96375; 97110; 97162; 97166; 97530; 99283; G0103; J1650; J2270; J2405; J7030; Q9967

== ENCOUNTER 2020-03-22 16:07 | Emergency (ER) | payer MEDICARE, MEDICAID, SELFPAY ==
[2020-03-22 16:13] VITALS: BP 120/65; PULSE 96; RESP 18; TEMP 39.5; O2SAT 94; BMI 15.2
--- NOTE | 2020-03-22 16:40 | ECG_ITS ---
[facility] Test Date: 2020-03-22 Pat Name: Carloz Baeza Sr Department: Room: Gender: Male [place]: : 1945 Requested By: Diaz Barnes Order Number: [id number] Osiel MD: Nicholas Plasencia M.D. Measurements Intervals [place] Rate: 80 P: 72 [place]: 172 QRS: -65 QRSD: 138 T: 65 QT: 423 QTc: 490 Interpretive Statements SINUS RHYTHM LEFT AXIS DEVIATION [QRS AXIS < -30] RIGHT BUNDLE BRANCH BLOCK [120+ ms QRS DURATION, UPRIGHT V1, 40+ ms S IN I/aVL/V4/V5/V6] Compared to ECG 12/03/2019 18:14:16 Left-axis deviation now present Indeterminate axis no longer present Electronically Signed On 03-22-2020 20:43:49 CDT by Nicholas Plasencia M.D. [id number]
--- NOTE | 2020-03-22 16:40 | XRR_ITS ---
PROCEDURE INFORMATION: Exam: XR Chest, 1 View Exam date and time: 03/22/2020 5:36 PM Age: 74 years old Clinical indication: Cough and dyspnea; Additional info: Dyspnea/cough TECHNIQUE: Imaging protocol: XR of the chest Views: 1 view. COMPARISON: CT chest w con* [id number] 12/03/2019 6:25 PM FINDINGS: Tubes, catheters and devices: Intact multi lead left subclavian pacemaker. Lungs: Changes of emphysema. Mild interstitial scarring in the left lung base. The right lung is clear. No focal consolidation. Pleural space: Unremarkable. No pleural effusion. No pneumothorax. Heart/Mediastinum: Unremarkable. No cardiomegaly. Bones/joints: Unremarkable. XR/XR chest 1V portable [id number] IMPRESSION: No acute findings.
--- NOTE | 2020-03-22 16:56 | ED_ITS ---
HPI - Fever General: Chief Complaint: Fever Stated Complaint: fever Time Seen by Provider: 03/22/20 16:26 History of Present Illness: HPI Narrative: 74-year-old male comes in complaining of a fever that started couple of days ago. He has a chronic cough he is a severe end-stage COPD denies any hemoptysis is not really had any change in mucus production but the cough has had a definite increase in the last couple of days coinciding with a fever. He denies any chest pain he is not been on any antibiotics or steroids recently as far as he knows he is not been around anyone who is been exposed to COVID-19 or has been under investigation for that. Patient is a lifelong smoker last few years he has had significant weight loss stories down to 112 pounds elicited complaint: fever Pertinent past history: other (copd) Onset (ago): day(s) Exacerbating factors: nothing Relieving factors: nothing Associated symptoms: Reports cough, short of breath and weight loss; Deny abdominal pain, chills, chest pain, diarrhea, dysuria, myalgias, nasal congestion, nausea, rash, rhinorrhea, sore throat or vomiting Treatments prior to arrival fever: none Review of Systems 2 Const: Denies: fever(s), chills, body aches, change in appetite, fatigue or malaise ENMT: Denies: nasal congestion Card: Denies: chest pain Resp: Denies: dyspnea, productive cough or non-productive cough GI: Denies: abdominal pain, nausea, vomiting or diarrhea : Denies: dysuria Skin/Breast: Denies: rash or pruritus PFSH ED PFSH: Medical History (Updated 03/22/20 @ 17:31 by Diaz Douglas DO) CVA (cerebral vascular accident) End stage COPD Surgical History (Updated 03/22/20 @ 17:31 by Diaz Douglas DO) H/O splenectomy History of appendectomy History of cholecystectomy Social History Smoking and tobacco status: former smoker Alcohol intake: never Physical Exam Const: GENERAL APPEARANCE: cooperative and comfortable NUTRITIONAL APPEARANCE: cachectic ORIENTATION/CONSCIOUSNESS: Yes awake, Yes oriented to person, Yes oriented to place and Yes oriented to time HENMT: COMMON NORMALS: normocephalic and atraumatic HEAD & SCALP: normocephalic and atraumatic Eye: COMMON NORMALS: Equal, round and reactive pupils present, EOMs intact bilaterally, conjunctivae normal and no scleral icterus CONJUNCTIVA: Yes conjunctivae normal PUPIL: Yes Equal, round and reactive pupils present Neck/C-Spine: COMMON NORMALS: full ROM, no lymphadenopathy, supple and no JVD Lymph: LYMPHATIC: no lymphadenopathy noted and no lymphedema noted Resp: AUSCULTATION: wheezes expiratory wheezes Cardio: COMMON NORMALS: no JVD, regular rate, regular rhythm and No murmurs present (Cardio) RATE: regular rate RHYTHM: regular rhythm GI: COMMON NORMALS: Soft to palpation and No hepatosplenomegaly present AUSCULTATION: Yes normoactive bowel sounds PALPATION: Yes Soft to palpation, No Tenderness to palpation present (GI), No Guarding due to palpation present (GI) and Yes No hepatosplenomegaly present Extremity: COMMON NORMALS: normal to inspection, capillary refill normal, no clubbing, cyanosis or edema, no calf tenderness and no pedal edema Neuro: SENSORIUM/ORIENTATION: Yes oriented to person, Yes oriented to place and Yes oriented to time Skin: COMMON NORMALS: no rashes or lesions noted GENERAL SKIN EXAM: no rashes or lesions noted Course Vital Signs: Vital signs: Vital Signs Temperature 103.1 F H 03/22/20 16:13 Pulse Rate 96 03/22/20 16:13 Respiratory Rate 18 03/22/20 16:13 Blood Pressure 120/65 03/22/20 16:13 Pulse Oximetry 94 03/22/20 16:13 Discharge Plan Discharge Prescriptions: No Action hydrocodone-acetaminophen 5-325 mg tablet 1 tab PO BID PRN (Reason: Pain) RF: 0 omeprazole 40 mg capsule,delayed release(DR/EC) 40 mg PO DAILY RF: 0 gabapentin 300 mg capsule 300 mg PO BID RF: 0 mirtazapine 15 mg tablet 15 mg PO DAILY RF: 0 lorazepam 1 mg tablet 1 mg PO Q8H PRN (Reason: Anxiety) RF: 0 ipratropium bromide 0.02 % solution See Rx Instructions .ROUTE .COMPLEX PRN (Reason: Shortness Of Breath) RF: 0 Multiple Vitamins Tablet 1 tab PO DAILY RF: 0 ibuprofen 800 mg Tablet 800 mg PO BID PRN (Reason: Pain) RF: 0 Pepcid 40 mg Tablet 40 mg PO BID RF: 0 ProAir HFA 90 mcg/actuation Hfa Aerosol Inhaler 1 - 2 puff INHALATION Q4H PRN (Reason: Shortness Of Breath) RF: 0 melatonin 10 mg Tablet 10 mg PO BEDTIME RF: 0 Coding Level of Care Code ED Head Of Digital Advertising & Integration for Chg Fritz
[2020-03-22 17:47] LABS: Basophils % 0.5 %; Hemoglobin 11.6 g/dL (11.7-16.6); Lymphocytes # 0.6 10^3/uL (0.8-4.8); Lymphocytes % 9.6 %; Mean Corpuscular HGB Conc 35.2 g/dL (30.0-36.0); Mean Corpuscular Hemoglobin 35.9 pg (28.0-34.0); Mean Corpuscular Volume 102.2 fL (80-94); Mean Platelet Volume 10.4 fL (7.4-10.4); Monocytes # 0.3 10^3/uL (0.2-0.9); Monocytes % 4.6 %; Neutrophils # 5.12 10^3/uL (1.8-7.7); Neutrophils % 84.8 %; Nucleated Red Blood Cells % 0.5 %; Platelet Count 143 10^3/cmm (130-400); Red Blood Count 3.23 10^6/uL (4.1-5.3); Red Cell Distribution Width 13.8 % (12.1-15.1)
[2020-03-22 18:02] LABS: ABG PCO2 33.1 mmHg (35-45); ABG PH Result 7.48 (7.35-7.45); Alveolar-Arterial Oxygen Gradi 7.3 mmHg (5-10); Arterial Blood Gas Hematocrit 38.2 % (42-52); Base Excess ABG 1.8 mmol/L (-2.0-2.0); Blood Gas Allen Test Pos; Blood Gas Operator Identificat CAK; Blood Gas Sample Site Radial, left; Blood Gas Sample Type Arterial; Carboxyhemoglobin 4.6 %THgb (0.4-20.1); HCO3 ABG 24.8 mmol/L (22-26); HGB O2 Sat 83.3 % (95-100); Ionized Calcium Level - ABG 1.1 mmol/L (1.1-1.4); Oxygen Device ROOM AIR; Oxygen Saturation ABG 88.3; PO2 ABG 52.2 mmHg (80.0-100.0); Total Hemoglobin 12.5 g/dL (14-18)
[2020-03-22 18:02] LABS: Alanine Aminotransferase 23 U/L (0-41); Albumin Level 3.3 g/dL (3.5-5.2); Alkaline Phosphatase 128 IU/L (40-130); Anion Gap 13.5 (5-19); Aspartate Amino Transferase 50 U/L (0-40); Blood Urea Nitrogen 11 mg/dL (8-23); Calcium 8.5 mg/dL (8.5-10.5); Carbon Dioxide 23 mmol/L (22-29); Chloride 96 mmol/L (98-107); Creatine Phosphokinase 67 U/L (39-308); Globulin 2.7 g/dL (1.3-4.6); Glucose 118 mg/dL (65-115); Lipase 31 U/L (13-60); Osmolality Calculated 265 mOsm/kg (285-295); Potassium 3.5 mmol/L (3.5-5.1); Sodium 129 mmol/L (136-145); Total Bilirubin 0.2 mg/dL (0.15-1.2)
[2020-03-22 18:31] LABS: Lactic Sepsis W/Reflex 1.9 mmol/L (0.5-2.2)
[2020-03-22 18:43] LABS: SARS Covid-2 Antigen Negative (Negative)
[2020-03-22 18:47] VITALS: BP 103/55; PULSE 78; RESP 28; TEMP 37.4; O2SAT 94
[2020-03-22 19:04] VITALS: BP 107/61; PULSE 78; RESP 34; O2SAT 95
[2020-03-22 19:22] LABS: Add Urine Microscopic? YES; Bilirubin Urine Neg (NEGATIVE); Blood Urine 2+ (Negative); Glucose Urine UA Norm (Normal); Ketones Urine Negative (Negative); Leukocyte Esterase Urine Negative (Negative); Nitrate Urine Negative (Negative); Protein Urine Neg (Negative); Specific Gravity, Urine 1.015 (1.005-1.030); Urine Appearance SL Hazy (CLEAR); Urine Color Yellow (Yellow); Urobilinogen Urine 1 mg/dL (Negative); pH Urine 5 (5-7)
[2020-03-22 19:23] LABS: Bacteria Urine 1+; Mucus Urine 2+; Squamous Epithelial Cell Urine RARE (0-5); WBC Urine RARE /hpf (0-5)
[2020-03-22 19:24] LABS: Add Urine Culture? Yes
[2020-03-22 19:33] VITALS: BP 104/56; PULSE 76; RESP 25; O2SAT 93
[2020-03-22] MEDS: cefTRIAXone 1,000 MG in sodium chloride 0.9% (plus) 50 ML 100 MG IV (20:15)
[2020-03-22 20:17] VITALS: BP 99/47; PULSE 74; RESP 23; O2SAT 94
[2020-03-22 20:32] VITALS: BP 114/61; PULSE 76; RESP 18; TEMP 36.7; O2SAT 96
== END 2020-03-22 20:27 | disposition home or self-care (01) ==
PROVIDERS: Family Medicine; Emergency Provider Emergency Medicine; PCP Family Medicine
DX: R50.9 Fever, unspecified (principal); R05 Cough; Z86.73 Personal history of transient ischemic attack (TIA), and cerebral infarction without residual deficits; J44.9 Chronic obstructive pulmonary disease, unspecified; Z87.891 Personal history of nicotine dependence
CPT/HCPCS: 12345; 36600; 71045; 80051; 80053; 81001; 81003; 82550; 82810; 83605; 83690; 83986; 85025; 87040; 87086; 87426; 93005; 96365; 99283; 99284; J0696